=== PATIENT | male | born 1980 | race Caucasian/White ===

== ENCOUNTER 2020-03-09 17:54 | Observation (INO) | payer BC, MEDICAID, SELFPAY ==
[2020-03-09 17:55] VITALS: BP 162/100; PULSE 111; RESP 14; TEMP 36.8; O2SAT 96; BMI 30.6
--- NOTE | 2020-03-09 18:09 | EKG12_ITS ---
Test Reason : CP Blood Pressure : / mmHG Vent. Rate : 106 BPM Atrial Rate : 106 BPM P-R Int : 126 ms QRS Dur : 088 ms QT Int : 372 ms P-R-T Axes : 043 078 019 degrees QTc Int : 494 ms Sinus tachycardia Otherwise normal ECG Confirmed by APRIL GARZA ([id number]), content editor STEPHANIE PORTILLO ([id number]) on 03/11/2020 7:22:26 AM Referred By: TEO Confirmed By:APRIL GARZA
--- NOTE | 2020-03-09 18:17 | RAD_ITS ---
STUDY: X-RAY CHEST REASON FOR EXAM: Male, 39 years old. chest pain with vomiting TECHNIQUE: Single frontal view of the chest. COMPARISON: 04/19/2016 FINDINGS: The lungs are clear and expanded. There is no demonstrated pleural abnormality. Normal size heart. Normal mediastinum and blaire. Normal visualized pulmonary arteries. Normal visualized aortic arch and descending thoracic aorta. Normal visualized thoracic spine. Normal visualized ribs, clavicles, and shoulders. There is no demonstrated abnormality of the visualized soft tissue structures of the upper abdomen. RAD/Chest 1 View (Portable) IMPRESSION: Normal x-ray examination of the chest. Electronically Signed: Jose Garcia MD at 20:15 EDT Tel , Service support ,
--- NOTE | 2020-03-09 18:21 | ED.DCSUM_ITS ---
- ER Visit Summary Date of Service: 03/09/20 Chief Complaint: Chest pain History of Present Illness: The patient is a 39 M with a history of coronary disease, stent in the anterior descending artery, last cardiac catheterization 2013. History of pseudoseizures and conversion disorder. Presents with chest pain that started yesterday at work. The pain has been intermittent. He took some nitro yesterday and it felt better. He has nausea, vomiting, and feels shaky today. No history of venous thromboembolism. Physical Examination: Afebrile and vital signs unremarkable except for blood pressure 162/100 which she says is normal and heart rate is 111 which she says is normal. Alert and oriented. Appears depressed. Heart tachycardic but regular. Lungs clear. Calves soft and supple. Skin normal in color. Test Results: EKG showed sinus rhythm at a rate of 106. Laboratory studies and chest x-ray are pending. Emergency Department Course and Treatment: Patient treated with aspirin, Zofran, and IV fluids while awaiting results. He will likely need admission for cardiac evaluation. Chest x-ray was normal. CBC unremarkable. Potassium 3.2 which was replaced. Troponin normal. On reevaluation, patient is sleeping. He is with his family. He does have a history of conversion disorder and pseudoseizures. He is difficult to arouse sometimes per his family, but this is not a new issue and is probably related to his mental health history. Given his history of coronary disease, the hospitalist was contacted to admit for further care. Treatment Plan: As above Disposition: Admission Impression: Chest pain This note was generated with [employer] dictation software. It may contain incorrect words, spelling, and punctuation that were not noted in review of the chart prior to signing ED Disposition - Plan for ED Patient: Referrals: Martin Mcneill MD [Primary Care Provider] -
[2020-03-09] MEDS: 0.9% Normal Saline 1,000 ML 1000 ML IV (18:25)
[2020-03-09] MEDS: Ondansetron 4 MG/2 ML Vial IV (18:25)
[2020-03-09] MEDS: Aspirin 81 MG TAB.CHEW 324 MG PO (18:25)
[2020-03-09 18:38] LABS: Absolute Lymphocyte Count 3.55 X10^3/uL (0.83-4.51); Absolute Neutrophil Count 4.8 X10^3/uL (2.0-7.7); Basophil# 0.07 X10^3/uL; Basophil% 0.7 % (0-1); Eosinophil# 0.15 X10^3/uL; Eosinophils% 1.5 % (0-5); Hematocrit 50.2 % (40-54); Hemoglobin 17.6 g/dL (13.0-16.5); Lymphocyte # 3.55 X10^3/ul (4.0); Lymphocyte % 36.6 % (19-41); Mean Corp Hgb Conc 35.1 g/dL (32-36); Mean Corpuscular Hgb 32.2 pg (27.0-32.0); Mean Corpuscular Volume 91.9 fL (80-94); Mean Platelet Vol. 10.1 fl (6.2-12.0); Monocyte# 1.13 X10^3/uL; Monocyte% 11.6 % (0-10); NRBC Flagged by Analyzer 0 % (0-5); Neutrophil # 4.76 X10^3/uL (2.7-7.7); Neutrophil % 49.2 % (47-70); Platelet Count 270 K/mm3 (150-450); RBC Distribution Width CV 11.9 % (11.6-14.6); RBC Distribution Width SD 39.9 fl (35.1-43.9); Red Blood Count 5.46 M/mm3 (4.6-6.2); White Blood Count 9.7 K/mm3 (4.4-11.0)
[2020-03-09 18:42] LABS: Anion Gap 9 (5-15); BUN 14 mg/dL (7-18); BUN/Creat Ratio 13.2 RATIO (10-20); Chloride 104 mmol/L (98-107); Creatinine, Serum 1.06 mg/dL (0.70-1.30); EST Glomerular Filtration Rate 83 mL/min (>60); Est Glom Filt Rate - Afr Amer 101 mL/min (>60); Estimated Creatinine Clearance 114.04 ml/min; Glucose 116 mg/dL (74-106); Potassium 3.2 mmol/L (3.5-5.1); Sodium Level 137 mmol/L (136-145)
[2020-03-09 19:39] VITALS: BP 166/99; PULSE 103; RESP 18; O2SAT 96
--- NOTE | 2020-03-09 20:28 | PCM.HP.STD ---
Problem List (1) Chest pain Status: Acute (2) Hx of medication noncompliance Status: Chronic (3) Anxiety disorder Status: Chronic (4) Conversion disorder Status: Chronic (5) CAD (coronary artery disease) Status: Chronic Qualifiers: Coronary Disease-Associated Artery/Lesion type: [place] artery [place] vs. transplanted heart: [place] heart Associated angina: without angina Qualified Code(s): I25.10 - Atherosclerotic heart disease of [place] coronary artery without angina pectoris Comment: LAD stent 12/12 (6) Pseudoseizures Status: Chronic History of Present Illness Date of Admission: 03/09/20 Chief Complaint: chest pain The patient is a 39 year old M with a significant history of pseudoseizures; conversion disorder; anxiety disorder; CAD status post coronary stent in his LAD who presents at the emergency department with chest pain. He describes his chest pain as sharp. Chest pain is nonradiating and it was severe in intensity. His chest pain started on the same day of presentation. 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 The chest pain was excruciating. It was non-radiating. It improved with nitroglycerin and with rest. His chest pain had resolved before presenting to the emergency department. However while history was been taking his chest pain started to come back. Also he reports that four days before his presentation he had allergic reaction from eating eggs. He thinks that there is sulfa in the eggs and that caused his symptoms. He reported allergic symptoms as bloody diarrhea that has now resolved. Three days before presentation he had lightheadedness and difficulty standing up. Also he vomited. A day before presentation he vomited; had lightheadedness and felt dizzy. Patient has been unusually very sleepy. He report that typically when he is sick he gets sleepy. History was taken with his father present. And his father reported that patient has been sleepy. Patient reports excessive stress from a child custody duran. He reported that his previous [place] at the age of 33 for which a stent was placed was because of stress. Past Medical History Past Medical History (Chronic Problems): Chronic Problems (Last Updated 03/10/20 @ 00:[address] Victor Manuel Vitale MD) CAD (coronary artery disease) (Chronic) LAD stent 12/12 Pseudoseizures (Chronic) Conversion disorder (Chronic) Anxiety disorder (Chronic) Hx of medication noncompliance (Chronic) Medical History: Medical History (Last Updated 03/10/20 @ 00:[address] Victor Manuel Vitale MD) Tuberculosis (Inactive) A15.9 Patient had TB in his childhood. Allergies ibuprofen [From Motrin] Allergy (Verified 03/09/20 17:55) Unknown Sulfa (Sulfonamide Antibiotics) Allergy (Verified 03/09/20 17:55) Hives warfarin Adverse Reaction (Verified 03/09/20 18:27) PT UNSURE OF REACTION TAPE Adverse Reaction (Uncoded 03/09/20 17:55) Other Home Medications: Ambulatory Orders Medication Instructions Recorded Nitroglycerin 0.4 mg SL PRN 03/09/20 Surgical History: Surgical History (Last Updated 03/10/20 @ 00:[address] Victor Manuel Vitale MD) Stented coronary artery (Acute) Z95.5 Psychiatric History: Anxiety Smoking Status: Current every day smoker Tobacco Use: Cigarettes - *Family History Paternal History Items: Diabetes, Stroke Maternal History Items: Diabetes, Hypertension Review of Systems Constitutional: Denies: Chills, Fever, Weight Change HEENT: Denies: Head Aches, Sinus Congestion, Sinus Drainage Cardiovascular: Reports: Chest Pain. Denies: Palpitations Respiratory: Denies: Cough, Shortness of breath at rest, Sputum production Gastrointestinal: Reports: Nausea, Vomiting. Denies: Abdominal Pain Genitourinary: Denies: Dysuria Musculoskeletal: Denies: Joint Pain, Joint Tenderness Skin: Denies: Rash, Wounds Neurological: Reports: Balance problems, Tremor. Denies: Focal weakness, Numbness, Tingling Psychiatric: Denies: Anxiety, Depression, Homicidal Ideations, Suicidal Ideations Hematologic/ Lymphatic: Denies: Easy Bruising, Easy Bleeding VTE Information - Inpt Only VTE Present on Admission: No VTE Mechan Device Prophylaxis: SCD's VTE Pharm Prophylaxis ordered?: No Patient Problems: Active and Suspected Problems (Last Updated 03/10/20 @ 00:[address] Victor Manuel Vitale MD) Chest pain (Acute) - Physical Exam Vitals/I&O's: Vital Signs Temp Pulse Resp BP Pulse Ox 98.2 F 103 H 18 166/99 H 96 03/09/20 17:55 03/09/20 19:39 03/09/20 19:39 03/09/20 19:39 03/09/20 19:39 Oxygen Delivery Method Room Air Weight: 111 kg Body Mass Index (BMI) 30.6 Finger Stick Blood Glucose 116 Intake and Output for Last 24 Hours 03/07/20 03/08/20 03/09/20 23:59 23:59 23:59 Intake Total 1000 / 1000 Balance 1000 / 1000 General: Alert, Oriented x3, Cooperative HEENT: Atraumatic, PERRLA, EOMI, Normocephalic Neck: Supple, No JVD, Negative Carotid Bruits Lungs: Clear to auscultation, Normal air movement Cardiovascular: Regular rate, Normal S1, Normal S2, No murmurs Abdomen: Bowel Sounds Present, Soft, Non Tender Extremities: No edema, Capillary Refill Less than 3 Seconds Skin: No rashes, No breakdown Musculoskeletal: No Tenderness to Palpation of Joints or Extremities Neurological: Cranial nerves II-XII grossly intact Psych/Mental Status: Normal Affect, Appropriate Laboratory Results 03/09/20 18:00: WBC 9.7, RBC 5.46, Hgb 17.6 H, Hct 50.2, MCV 91.9, MCH 32.2 H, MCHC 35.1, RDW Std Deviation 39.9, RDW Coeff of [place] 11.9, Plt Count 270, MPV 10.1, Immature Gran % (Auto) 0.400, Neut % (Auto) 49.2, Lymph % (Auto) 36.6, [place] % (Auto) 11.6 H, Eos % (Auto) 1.5, Baso % (Auto) 0.7, Absolute Neuts (auto) 4.8, Absolute Lymphs (auto) 3.55, Nucleated RBC % 0 03/09/20 18:00: Sodium 137, Potassium 3.2 L, Chloride 104, Carbon Dioxide 24.0, Anion Gap 9, BUN 14, Creatinine 1.06, Estim Creat Clear Calc 114.04, Est GFR (MDRD) Af Amer 101, Est GFR (MDRD) Non-Af 83, BUN/Creatinine Ratio 13.2, Glucose 116 H, Calcium 9.0, Troponin I < 0.015 Assessment/Plan All Active Problems (Last Updated 03/10/20 @ 00:[address] Victor Manuel Vitale MD) Chest pain (Acute) Stented coronary artery (Acute) The patient is a 39 year old M with a significant history of pseudoseizures; conversion disorder; anxiety disorder; CAD status post coronary stent in his LAD who presents to the emergency department with chest pain. Chest Pain Place on a monitored bed at PCU Actual CXR image was independently visualized. No acute cardiopulmonary process was noted. Actual EKG tracing was independently visualized. EKG tracing showed sinus tachycardia. Patient received aspirin 324 mg at emergency department. ASA 81 mg p.o. daily ordered SL NTG 0.4 mg prn as needed for chest pain ordered We will check lipid panel. With his history of coronary stent if patient has no allergic to statin patient is a candidate of statin. Atorvastatin 40 mg nightly ordered. Will order CMP for now. Serial cardiac enzymes ordered Stat EKG as needed for chest pain Chemical stress test in the AM if the cardiac enzymes are negative. Patient is not a candidate for treadmill stress test since he reported dizziness and disequilibrium. He does not think that he can run on a treadmill. Dizziness and disequilibrium Will order vitamin B12. Orthostatic vitals ordered. Hypokalemia Potassium presentation was 3.2. 40 mEq of potassium was ordered at the emergency department. Will order urinary potassium. Will order potassium 40 mEq twice daily. CMP in a.m. Prolonged QTc interval EKG showed QTC prolongation with an interval of 471. Avoid QTC prolongation drugs. Tobacco abuse Counseled Declined nicotine patch. DVT prophylaxis ordered. SCD. No chemical thromboprophylaxis in the setting of cardiac work-up. OBSV E&M: [id number] Initial observation care L3
[2020-03-09 20:51] VITALS: BP 156/101; PULSE 96; RESP 18; TEMP 37.1; O2SAT 96
[2020-03-09 21:25] VITALS: BP 156/98; PULSE 87; PULSE 89; RESP 16; TEMP 36.7; O2SAT 98
--- NOTE | 2020-03-09 21:31 | EKG12_ITS ---
Test Reason : AM EKG Blood Pressure : / mmHG Vent. Rate : 080 BPM Atrial Rate : 080 BPM P-R Int : 136 ms QRS Dur : 094 ms QT Int : 400 ms P-R-T Axes : 045 077 051 degrees QTc Int : 461 ms Normal sinus rhythm Normal ECG When compared with ECG of 09-MAR-2020 22:51, MANUAL COMPARISON REQUIRED, DATA IS UNCONFIRMED Confirmed by LUTHER VALDEZ, FERNANDA ([id number]), mapping editor STEPHANIE PORTILLO ([id number]) on 03/16/2020 9:48:33 AM Referred By: TRISTEN Confirmed By:FERNANDA SLOAN MD
[2020-03-09 21:35] VITALS: BMI 29.6
[2020-03-09 21:38] VITALS: BMI 29.5
[2020-03-09] MEDS: Atorvastatin Calcium 40 MG Tablet PO (23:11)
[2020-03-09 23:32] LABS: Vitamin B12 366 pg/mL (211-911)
[2020-03-10] VITALS (7 sets, daily range): BP systolic 123–168; BP diastolic 79–104; PULSE 74–120; RESP 16–18; TEMP 36.8–36.9; O2SAT 95
[2020-03-10 03:01] LABS: Cholesterol 233 mg/dL (200); High Density Lipoprotein 28 mg/dL; Triglycerides 180 mg/dL; Very Low Density Lipoprotein 36 mg/dL (5-40)
[2020-03-10 03:10] LABS: ALB/GLOB Ratio 0.9 RATIO (0.9-2.4); AST(SGOT) 97 U/L (15-37); Alanine Aminotransfer ALT/SGPT 138 U/L (16-61); Albumin, Serum 3.5 g/dL (3.2-5.0); Alkaline Phosphatase 91 U/L (45-117); BUN 12 mg/dL (7-18); BUN/Creat Ratio 13.3 RATIO (10-20); Calcium,Total 8.3 mg/dL (8.5-10.1); Chloride 107 mmol/L (98-107); EST Glomerular Filtration Rate 100 mL/min (>60); Est Glom Filt Rate - Afr Amer 121 mL/min (>60); Estimated Creatinine Clearance 134.31 ml/min; Glucose 98 mg/dL (74-106); Potassium 3.7 mmol/L (3.5-5.1); Protein, Total 7.5 g/dL (6.4-8.2); Sodium Level 137 mmol/L (136-145)
[2020-03-10 03:11] LABS: Anion Gap 6 (5-15); Thyroid Stim Hormone (TSH) 1.62 uIU/mL (0.358-3.74)
--- NOTE | 2020-03-10 05:55 | EKG12_ITS ---
Test Reason : ADM EKG Blood Pressure : / mmHG Vent. Rate : 088 BPM Atrial Rate : 088 BPM P-R Int : 124 ms QRS Dur : 092 ms QT Int : 390 ms P-R-T Axes : 039 074 017 degrees QTc Int : 471 ms Normal sinus rhythm Nonspecific T wave abnormality Prolonged QT Abnormal ECG When compared with ECG of 27-JUN-2017 10:15, No significant change was found Confirmed by LUTHER VALDEZ, FERNANDA ([id number]), fashion editor STEPHANIE PORTILLO ([id number]) on 03/16/2020 9:49:17 AM Referred By: TRISTEN Confirmed By:FERNANDA SLOAN MD
[2020-03-10] MEDS: Aspirin E.C. 81 MG Tablet PO (06:06)
[2020-03-10] MEDS: 0.9% Saline Lock 10 ML Syringe IV ×2 (06:06→12:08)
[2020-03-10] MEDS: proCHLORPERazine 10 MG/2 ML Vial 5 MG IV (12:08)
--- NOTE | 2020-03-10 13:14 | STRESSREP ---
Stress Test Report Pharmacologic myocardial perfusion stress test. 39-year-old man with a history of coronary artery disease and stenting in his left anterior descending artery. Stress protocol: Resting EKG demonstrates normal sinus rhythm with a rate of 87 bpm normal intervals are noted resting blood pressure is 122/96 mmHg. 0.4 mg of regadenoson was infused per usual protocol followed by Intravenous saline flush injection continuous EKG monitoring was performed. The maximum heart rate was 137 bpm which was 74% of maximum predicted heart rate the maximum workload was 1 metabolic equivalent. At rest there were nonspecific ST-T wave changes noted with no meet the criteria for abnormal flow reserve and at peak infusion nonspecific ST-T wave changes were noted. The resting blood pressure was 122/96 with a final blood pressure of 138/86 mmHg. Myocardial perfusion protocol. 13.2 mCi of technetium 99m sestamibi was injected at rest. 0.4 mg of regadenoson was infused per usual protocol. At peak infusion 42.3 mCi of technetium 99m sestamibi was injected stress images were obtained stress and rest images were reconstructed and compared in the short axis vertical long and horizontal long axis. Gated images were also obtained. Perfusion SPECT analysis: Review of the stress images demonstrate normal uptake of tracer noted in all areas of the myocardium. There is a small portion of the apex with a perfusion defect on the stress and resting images suggestive of a previous apical infarct. No ischemia is noted. Gated SPECT analysis: The gated ejection fraction is over 55%. Conclusion: Pharmacologic myocardial perfusion stress test with no evidence of ischemia. Preserved ejection fraction. 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
--- NOTE | 2020-03-10 13:24 | PCM.DC ---
- Discharge Diagnoses Current Active Problems: Current Active and Chronic Problems (Last Updated 03/10/20 @ 00:[address] Victor Manuel Vitale MD) Chest pain (Acute) You will use the following diet at home:: Cardiac Discharge Activity: Return to Normal Activity Call your doctor if you observe: Shortness of breath, Dizziness, Fainting spells, Chest pain Allergies/Adverse Reactions: Allergies ibuprofen [From Motrin] Allergy (Verified 03/09/20 17:55) Unknown Sulfa (Sulfonamide Antibiotics) Allergy (Verified 03/09/20 17:55) Hives warfarin Adverse Reaction (Verified 03/09/20 21:41) PT UNSURE OF REACTION hallucinations TAPE Adverse Reaction (Uncoded 03/09/20 17:55) Other Medications to take at Discharge Nitroglycerin 0.4 mg SL PRN 03/09/20 Aspirin E.C. [Ecotrin] 81 mg PO DAILY@0800 #30 tab 03/10/20 Atorvastatin Calcium [Lipitor] 40 mg PO QHS #30 tab 03/10/20 The following prescriptions were given: Aspirin E.C. [Ecotrin] 81 mg PO DAILY@0800 #30 tab Transmission Status: Pending to [facility] Atorvastatin Calcium [Lipitor] 40 mg PO QHS #30 tab Transmission Status: Pending to [facility] Primary Care Physician: Martin Mcneill MD [Primary Care Provider] - Please follow up with your Primary Care Physician in: 1 Week Test Results: Test results from this visit will be discussed in further detail at your follow-up appointment, if applicable. Please Follow Up With: [facility] When: 1 Week Proposed Discharge Date: 03/10/20
--- NOTE | 2020-03-10 13:25 | PCM.DC.SUM ---
<Maris Loera - Last Filed: 03/10/20 13:35> Discharge Date and Diagnosis Date of Admission: 03/09/20 Date of Discharge: 03/10/20 - Primary Discharge Diagnosis Acute Problems: Active Problems (Last Updated 03/10/20 @ 00:[address] Victor Manuel Vitale MD) 1. Chest pain, ACS ruled out 2. CAD with history of PCI 3. Hyperlipidemia 4. History of pseudoseizures/conversion disorder/anxiety disorder 5. Transaminitis - Secondary Discharge Diagnosis Chronic Problems: Chronic Problems (Last Updated 03/10/20 @ 00:[address] Victor Manuel Vitale MD) CAD (coronary artery disease) (Chronic) LAD stent 12/12 Pseudoseizures (Chronic) Conversion disorder (Chronic) Anxiety disorder (Chronic) Hx of medication noncompliance (Chronic) Hospital Course and Treatment Imaging Results: Diagnostic Data Chest X-Ray 03/09/20 18:17 IMPRESSION: Normal x-ray examination of the chest. Electronically Signed: Jose Garcia MD at 20:15 EDT Tel , Service support , Operations: None Procedures: Stress test Summary of Care Provided: The patient is a 39 year old M admitted 03/09/2020 due to chest pain. 1. Chest pain, ACS ruled out-troponin negative. EKG without ST-T changes. Normal chest x-ray. Patient underwent nuclear stress test which was negative for ischemia. Gated ejection fraction 55%. Previous small apical infarct. Continue aspirin, statin. Follow-up with primary care and primary cardiology in 1 week. 2. CAD with history of PCI-placed on aspirin, statin. Not previously on regimen. 3. Hyperlipidemia-lipid profile elevated. Placed on atorvastatin 40 mg nightly. Recommend repeat lipid profile by PCP. 4. History of pseudoseizures/conversion disorder/anxiety disorder-not on regimen. Encouraged outpatient follow-up. 5. Transaminitis-unclear etiology. No previous labs for comparison. Recommend repeat liver profile in 1 week by primary care provider. Patient seen and examined prior to discharge. Physical assessment as noted below. Patient is stable for discharge with follow up recommendations as noted above. This patient was seen by KRYSTAL Henry under the supervision of Dr. Bazzi. - Physical Exam Vitals/I&O's: Vital Signs Temp Pulse Resp BP Pulse Ox 98.4 F 74 16 123/87 H 95 03/10/20 09:45 03/10/20 09:45 03/10/20 09:45 03/10/20 09:45 03/10/20 09:45 Oxygen Delivery Method Room Air Weight: 236 lb 12.423 oz Body Mass Index (BMI) 29.5 Finger Stick Blood Glucose 116 Orthostatic Vital Signs Start: 03/10/20 00:47 Freq: q24h Status: Active Protocol: Activity Type Activity Date Activity User E-Sign Co-Sign Detail Recorded Client Recorded Date Recorded By Document 03/10/20 03:25 MAB [id number] 03/10/20 04:19 MAB 03/10/20 03:25 Orthostatic Vitals Standing -Blood Pressure (90/60-120/80) 157/91 H -Extremity Use Right Arm -Pulse Rate (60-100) 100 Sitting -Blood Pressure (90/60-120/80) 143/94 H -Extremity Use Right Arm -Pulse Rate (60-100) 90 Lying -Blood Pressure (90/60-120/80) 138/90 H -Extremity Use Right Arm -Pulse Rate (60-100) 88 Intake and Output for Last 24 Hours 03/08/20 03/09/20 03/10/20 23:59 23:59 23:59 Intake Total 1240 / 1240 240 / 240 Balance 1240 / 1240 240 / 240 General: Alert, Oriented x3, Cooperative HEENT: Atraumatic, PERRLA, EOMI, Normocephalic Neck: Supple, No JVD, Negative Carotid Bruits Lungs: Clear to auscultation, Normal air movement Cardiovascular: Regular rate, No murmurs Abdomen: Bowel Sounds Present, Soft, Non Tender Extremities: No edema, Capillary Refill Less than 3 Seconds Skin: No rashes, No breakdown Musculoskeletal: No Tenderness to Palpation of Joints or Extremities Neurological: Cranial nerves II-XII grossly intact, Neuro grossly intact Psych/Mental Status: Normal Affect, Appropriate Laboratory Results 03/09/20 18:00: WBC 9.7, RBC 5.46, Hgb 17.6 H, Hct 50.2, MCV 91.9, MCH 32.2 H, MCHC 35.1, RDW Std Deviation 39.9, RDW Coeff of Lizett 11.9, Plt Count 270, MPV 10.1, Immature Gran % (Auto) 0.400, Neut % (Auto) 49.2, Lymph % (Auto) 36.6, Clare % (Auto) 11.6 H, Eos % (Auto) 1.5, Baso % (Auto) 0.7, Absolute Neuts (auto) 4.8, Absolute Lymphs (auto) 3.55, Nucleated RBC % 0 03/09/20 18:00: Sodium 137, Potassium 3.2 L, Chloride 104, Carbon Dioxide 24.0, Anion Gap 9, BUN 14, Creatinine 1.06, Estim Creat Clear Calc 114.04, Est GFR (MDRD) Af Amer 101, Est GFR (MDRD) Non-Af 83, BUN/Creatinine Ratio 13.2, Glucose 116 H, Calcium 9.0, Troponin I < 0.015 03/09/20 22:05: Troponin I < 0.015 03/09/20 22:05: Vitamin B12 366 03/10/20 02:35: Sodium 137, Potassium 3.7, Chloride 107, Carbon Dioxide 24.0, Anion Gap 6, BUN 12, Creatinine 0.90, Estim Creat Clear Calc 134.31, Est GFR (MDRD) Af Amer 121, Est GFR (MDRD) Non-Af 100, BUN/Creatinine Ratio 13.3, Glucose 98, Calcium 8.3 L, Total Bilirubin 1.20 H, AST 97 H, ALT 138 H, Alkaline Phosphatase 91, Total Protein 7.5, Albumin 3.5, Globulin 4.0, Albumin/Globulin Ratio 0.9, TSH 1.62 03/10/20 02:35: Troponin I < 0.015, Triglycerides 180, Cholesterol 233 H, LDL Cholesterol 169 H, VLDL Cholesterol 36, HDL Cholesterol 28 L Current Medications Acetaminophen (Tylenol) 650 mg PO Q6H PRN PRN PRN Reason: Pain Score 1-10/Temp > 100.7 F Aspirin (Ecotrin) 81 mg PO DAILY@0800 [facility] Last Admin: 03/10/20 06:06 Dose: 81 mg Documented by: Atorvastatin Calcium (Lipitor) 40 mg PO QHS [facility] Last Admin: 03/09/20 23:11 Dose: 40 mg Documented by: Dextrose (D50w Syringe) 0 gm IV X1 PRN; Protocol PRN Reason: Hypoglycemia Glucagon () 1 mg IM .X1 PRN PRN Reason: Hypoglycemia Sodium Chloride () 250 mls @ 15 mls/hr IV .[id number] PRN PRN Reason: Saline Flush Sodium Chloride () 250 mls @ 15 mls/hr IV .[id number] PRN PRN Reason: Additional IVPB Infusion Nitroglycerin (Nitrostat) 0.4 mg SUBLINGUAL Q5M PRN PRN Reason: CARDIAC/CHEST PAIN Nutritional Formula (Lactose Free) (Ensure Enlive) 120 ml PO 4X/DAY [facility] Last Admin: 03/10/20 13:23 Dose: Not Given Documented by: Potassium Chloride (K-Dur) 40 meq PO BIDCM [facility] Last Admin: 03/10/20 12:09 Dose: 40 meq Documented by: Prochlorperazine Edisylate (Compazine Iv) 5 mg IV Q6H PRN PRN PRN Reason: NAUSEA/VOMITING Last Admin: 03/10/20 12:08 Dose: 5 mg Documented by: Sodium Chloride () 10 - 40 ml IV UD PRN PRN Reason: SALINE FLUSH Last Admin: 03/10/20 12:08 Dose: 10 ml Documented by: Discharge Diet: Low fat/ Low Cholesterol Discharge Activity: Return to Normal Activity Call your doctor if you observe: Shortness of breath, Dizziness, Fainting spells, Chest pain Home Medications: Medications to take at Discharge Nitroglycerin 0.4 mg SL PRN 03/09/20 Aspirin E.C. [Ecotrin] 81 mg PO DAILY@0800 #30 tab 03/10/20 Atorvastatin Calcium [Lipitor] 40 mg PO QHS #30 tab 03/10/20 Following Prescrptions Were Given to Patient: Aspirin E.C. [Ecotrin] 81 mg PO DAILY@0800 #30 tab Transmission Status: Received by [facility] Atorvastatin Calcium [Lipitor] 40 mg PO QHS #30 tab Transmission Status: Received by [facility] Primary Care Physician: Martin Mcneill MD [Primary Care Provider] - Please follow up with your Primary Care Physician in: 1 Week Please Follow Up With: Primary Mortgage Loan Officer When: 1 Week Disposition: Home Minutes spent on discharge:: 35 Patient Condition:: Stable Medical Necessity - Tobacco Use Smoking Status: Current every day smoker Tobacco Use: Cigarettes Meaningful Use Info Meaningful Use Diagnoses (Choose all that apply): None applicable <[place] - Last Filed: 03/12/20 08:06> Discharge Date and Diagnosis - Secondary Discharge Diagnosis Chronic Problems: Chronic Problems (Last Updated 03/10/20 @ 00:[address] Victor Manuel Vitale MD) CAD (coronary artery disease) (Chronic) LAD stent 12/12 Pseudoseizures (Chronic) Conversion disorder (Chronic) Anxiety disorder (Chronic) Hx of medication noncompliance (Chronic) Hospital Course and Treatment Summary of Care Provided: This patient was seen in conjunction with Maris Loera NP. I have independently interviewed and examined the patient and reviewed pertinent historical, laboratory, and other data. Please refer to her note for patient's presentation, findings, and recommendations. 39-year-old male with past medical history of pseudoseizures/conversion disorder, anxiety disorder, CAD status post stent who comes in with sharp chest pain that is nonradiating. Chest pain is excruciating, nonradiating, improved with nitroglycerin. EKG showed normal sinus rhythm, tachycardia. His troponins were negative. He underwent exercise stress test which was negative. On the day of discharge, patient was seen and examined. Denied any new complaint. Physical Exam: Gen: Comfortable, flat affect, not pale, not jaundiced, alert oriented x3 CVS:HS I +II, regular, no murmurs RESP: Diminished at lung bases GI: BS present and normal, nontender, no palpable organs EXT:No edema - Physical Exam Vitals/I&O's: Vital Signs Temp Pulse Resp BP Pulse Ox 98.4 F 74 16 123/87 H 95 03/10/20 09:45 03/10/20 09:45 03/10/20 09:45 03/10/20 09:45 03/10/20 09:45 Oxygen Delivery Method Room Air Weight: 107.4 kg Body Mass Index (BMI) 29.5 Finger Stick Blood Glucose 116 Orthostatic Vital Signs Start: 03/10/20 00:47 Freq: q24h Status: Active Protocol: Activity Type Activity Date Activity User E-Sign Co-Sign Detail Recorded Client Recorded Date Recorded By Document 03/10/20 03:25 MAB [id number] 03/10/20 04:19 MAB 03/10/20 03:25 Orthostatic Vitals Standing -Blood Pressure (90/60-120/80) 157/91 H -Extremity Use Right Arm -Pulse Rate (60-100) 100 Sitting -Blood Pressure (90/60-120/80) 143/94 H -Extremity Use Right Arm -Pulse Rate (60-100) 90 Lying -Blood Pressure (90/60-120/80) 138/90 H -Extremity Use Right Arm -Pulse Rate (60-100) 88 Intake and Output for Last 24 Hours 03/10/20 03/11/20 03/12/20 23:59 23:59 23:59 Intake Total 240 / 240 Balance 240 / 240 OBSV E&M: [id number] Observation care discharge
--- OUTSIDE RECORDS SUMMARY | 2020-07-18 10:38 | XMS RPT_ITS | CCD ---
:1980 External Reference #:[id number] Author Organization [facility] Care Team Providers Name Role Phone Unavailable Unavailable Unavailable Results Result Name Value Range Unit Interpretation Flag Date Location cnpn on 2020-04-01 CNPN Telephone (FAMPWS) Normal 04-01-2020 [facility] LAVON LAI ([id number]) 1980 [facility] Date Time Provider Department ([id number]) 04/01/20 GEORGE HIRSCH During your visit today, we recorded the following informati on about you: Selene Proctor LPN 04/01/2020 8:36 AM Signed Patient dropped off FMLA forms to desk representative today and wante d to make sure office receives form. Angelica Rangel Ma 04/01/2020 11:27 AM Signed Office checked provider's ma ilbox. No forms have been placed there or in office. Angelica Navarro 04/01/2020 12:15 PM Signed Patient's mom calls says radha pinto would like included in FMLA that he is allowed 8 hour shifts but unable to work 12 hours shifts due t o his heart condition. Angelica Rangel Ma 04/01/2020 1:28 PM Signed Forms on PCP's desk to complete. Asking that these be done t jean. Angelica Hirsch MD 04/01/2020 5:45 PM Signed From done MD Angelica Stanford Ma 04/05/2020 8:59 AM Signed Faxed. Copy at med rec for pt to nut picker. Angelica Rangel Ma Allergies As of Date: 04/01/2020 Noted Allergy Reaction IBUPROFEN 02/26/2014 8 - GI Upset LIPITOR (ATORVASTATIN) 03/24/2020 17 - Myalgia NAPROXEN 02/26/2014 8 - GI Upset SULFA (SULFONAMIDE ANTIBIOTICS) 07/02/2007 Date Reviewed: 03/24/2020 Reviewed by: Angelica Rangel Ma - Fully Assessed Reason for Visit: FMLA Paperwork [[id number]] Prescriptions as of 04/01/2020 Sig: ROSUVASTATIN 5 MG TABLET Take 1 tablet by mouth once d* NITROGLYCERIN 0.4 MG SUBLINGU* Dissolve 1 tablet under the t * Problem List As Of Date 04/01/2020 Noted Resolved TOBACCO USE DISORDER [F17.200] TB vs + PPD only [A15.0] 09/03/2007 More... AMI (acute myocardial infarction) [I21.9] 12/19/2013 Fracture of radial head, left, closed [S52.122A]02/12/2014 CAD (coronary artery disease) [I25.10] 04/14/2014 History of PR (myocardial infarction) (HCC) [I2*05/19/2014 Conversion disorder with attacks or seizures [F*06/11/2014 Psychic factors associated with diseases classi*08/11/2014 Adjustment disorder with mixed anxiety and depr*08/11/2014 Anxiety [F41.9] 10/19/[address] elevation myocardial infarction (STEMI*11/02/2015 S/P angioplasty with stent [Z95.820] 11/02/2015 Encounter Status:Closed by ANGELICA RANGEL MA on 04/05/20 progress on 2020-03 PROGRESS HNO ID: [id number] Normal 03-24-2020 [facility] Author: George Hirsch [place] ([id number]) Service: ? Author Type: Physician Type: Progress Notes Filed: 03/24/2020 10:00 AM Note Text: This Team Access Model visit is a phone encounter. It requir ed patient-provider interaction for the medical decision making as documented below. Chief Complaint Patient presents with: Hospital Follow Up HPI: This Team Access Model visit is a virtual/phone encount er. It required patient-provider interaction for the medical decisi on making as documented below. Patient was offered a virtual/telemedicine appointment in lieu of an office visit due to recommendations to reduce patient exposure to COVID-19. Patient is aware of limitations of per forming the visit without a face to face visit in the office setting and agrees. Pt was in [facility] ER on 03/10/2020 for chest pains, all over weak ness, nausea, vomiting, diarrhea, dizziness, and SOB. [facility], and was discharged following day. He was discharged o n Lipitor 40 mg daily however pt did not tolerate it well, had a lot of s neeta effects from the medications. He states he will not take it any more . He states that he is still having dizziness and weakness, occ chest pa ins, SOB, still vomiting, nausea on a daily basis. No longer has any d iarrhea. He states he is not sure if the symptoms are now caused from th e Lipitor. He states that these symptoms have been on going but worsened w ith the Lipitor. He states he now has a rash to both legs and burnin g of skin and has been having sleep paralysis which started with use of Li pitor. Stress in life has decreased some right now. Work remains stressful; being made to work extra hours which he is not sure he is able to do, due to both physical and mental issue s. Past medical history, appointments, medications, allergies r eviewed. Previous Medical History PAST MEDICAL HISTORY Diagnosis Date - AMI (acute myocardial infarction) (HCC) 11/2013 - Anxiety 10/19/2014 - Chiari I malformation ([facility]) mild right, ventricle asymmetry - Conversion disorder with attacks or seizures 2013 negative EEG 03/2014 - TB vs + PPD only Says was treated for TB at age 20, + PPD, unclear if had act maikel disease - Tobacco use disorder age 19 Previous Surgical History PAST SURGICAL HISTORY Procedure Laterality Date - HEART CATHETERIZATION 12/03/2013 LAD stent - LEFT HEART CATH,PERCUTANEOUS 12/26/2013 Cardiac cath, L heart Family History FAMILY HISTORY Problem Relation Age of Onset - Diabetes Mother - None Father - Colon Cancer Other none - Coronary Artery Disease Other none Patient Allergies ALLERGIES Allergen Reactions - Ibuprofen GI Upset - Naproxen GI Upset - Sulfa (Sulfonamide * Current Medications Current Outpatient Medications on File Prior to Visit Medication Sig - ondansetron orally disintegrating (ZOFRAN ODT) 4 mg disint egrating tablet Take 1 tablet by mouth every 6 hours as needed for Na usea/Vomiting. - nitroglycerin sublingual (NITROSTAT) 0.4 mg SL tablet Diss olve 1 tablet under the tongue every 5 minutes as needed for Chest Pain. - propranolol ER (INDERAL LA) 60 mg 24 hr capsule Take 1 cap nicci by mouth once daily. Take several days prior to court date to control anxiety No current facility-administered medications on file prior t o visit. Social History Social History Tobacco Use - Smoking status: Current Every Day Smoker Packs/day: 1.00 Years: 8.00 Pack years: 8.00 Types: Cigarettes Start date: 07/01/2014 - Smokeless tobacco: Never Used Substance Use Topics - Alcohol use: No - Drug use: No Comment: History IV drug use, marijuana EXAM: There were no vitals taken for this visit. Phone visit; no exam done Health Maintenance List HIV SCREENING due on 2000 DTAP,TDAP,TD(1 - Tdap) due on 2001 ONE PNEUMOVAX PRIOR TO AGE 67 due on 2001 LDL CHOLESTEROL due on 10/26/2015 ANNUAL PCP TEAM CHRONIC DISEASE VISIT due on 09/04/2019 LIPID SCREEN due on 10/26/2019 INFLUENZA(Season Ended) due on 06/01/2020 HEPATITIS C SCREENING Completed Data reviewed Hosp records ASSESSMENT/PLAN: 1. Coronary artery disease without angina pectoris, unspecif ied vessel or lesion type, unspecified whether [place] or transplanted hear t - ICD9: 414.00, ICD10: I25.10 (primary diagnosis) Will try Crestor for lipids; plan to recheck lipids in 3 mon ths 2. Adjustment disorder with mixed anxiety and depressed mood - ICD9: 309.28, ICD10: F43.23 Stress level has decreased currently; discussed and recommen ded counseling 3. Conversion disorder with attacks or seizures - ICD9: 300. 11, ICD10: F44.5 He will see how he does with work; if it is too much for him he will call for a note to have limited hours Follow up prn 5-10 minutes of time spent on phone call I agree with the Chief Complaint, ROS, and Past Histories in dependently gathered by the clinical postal support employee and the remaining scr ibed note accurately describes my personal service to the patient. George Hirsch MD The documentation for this note was completed by Angelica cintron Ma acting as scribe for George Hirsch MD. March 24, 2020 7:59 AM. Angelica Rangel Ma Summary Purpose Family History No Family History Records Found Advance Directives No Advanced Directives Records Found Additional Source Comments FOR RECORDS PERTAINING TO PATIENTS WHO ARE OR HAVE BEEN ENROLLED IN A CHEMICAL DEPENDENCY/SUBSTANCE ABUSE PROGRAM, SOME INFORMATION MAY BE OMITTED. This clinical summary was aggregated from multiple sources. Caution should be exercised in using it in the provision of clinical care. This summary normalizes information from multiple sources, and as a consequence, information in this document may materially changethe coding, format and clinical context of patient data. In addition, data may be omittedin some cases. CLINICAL DECISIONS SHOULD BE BASED ON THE PRIMARY CLINICAL RECORDS. [facility] provides no warranty or guarantee of the accuracy or completeness of information in this document. UNRECOGNIZED CONTENT PROVIDED BELOW FOR UNRECOGNIZED SECTION No Status Records Found UNRECOGNIZED CONTENT PROVIDED BELOW FOR UNRECOGNIZED SECTION INFORMATION SOURCE DATE CREATED AUTHOR AUTHOR'S ORGANIZATIO N 04/20/2020 [facility] eliazar
--- OUTSIDE RECORDS SUMMARY | 2020-07-18 10:39 | XMS RPT_ITS | CCD ---
:1980 External Reference #:[id number] Author Organization [facility] Care Team Providers Name Role Phone Unavailable Unavailable Unavailable Results Result Name Value Range Unit Interpretation Flag Date Location cnpn on 2020-04-01 CNPN Telephone (FAMPWS) Normal 04-01-2020 [facility] LAVON LAI ([id number]) 1980 [facility] Date Time Provider Department ([id number]) 04/01/20 GEORGE HIRSCH During your visit today, we recorded the following informati on about you: Selene Proctor LPN 04/01/2020 8:36 AM Signed Patient dropped off FMLA forms to bowling or skating front desk clerk today and wante d to make sure [...] Copy at med rec for pt to sisal picker. Angelica Rangel Ma Allergies As of [...] (coronary artery disease) [I25.10] 04/14/[address] (myocardial infarction) (HCC) [I2*05/19/2014 Conversion disorder with attacks or seizures [F*06/11/2014 Psychic factors associated with diseases classi*08/11/2014 Adjustment disorder with mixed anxiety and depr*08/11/2014 Anxiety [F41.9] 10/19/[address] elevation myocardial infarction (STEMI*11/02/2015 S/P angioplasty with stent [Z95.820] 11/02/2015 Encounter Status:Closed by ANGELICA RANGEL MA on 04/05/20 progress on 2020-03 PROGRESS HNO ID: [id number] Normal 03-24-2020 [facility] Author: George Hirsch [place] ([id number]) Service: ? Author Type: Physician Type: Progress [...] office setting and agrees. Pt was in [facility] ER on 03/10/2020 for chest pains, all over weak ness, nausea, vomiting, diarrhea, dizziness, and SOB. 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 [facility] provides no warranty or guarantee of the accuracy or completeness of information in this document. UNRECOGNIZED CONTENT PROVIDED BELOW FOR UNRECOGNIZED SECTION No Status Records Found UNRECOGNIZED CONTENT PROVIDED BELOW FOR UNRECOGNIZED SECTION INFORMATION SOURCE DATE CREATED AUTHOR AUTHOR'S ORGANIZATIO N 04/20/2020 [facility] eliazar
--- OUTSIDE RECORDS SUMMARY | 2020-07-18 10:40 | XMS RPT_ITS | CCD ---
:1980 External Reference #:[id number] Author Organization [facility] Care Team Providers Name Role Phone Unavailable Unavailable Unavailable Results Result Name Value Range Unit Interpretation Flag Date Location cnpn on 2020-04-01 CNPN Telephone (FAMPWS) Normal 04-01-2020 [facility] LAVON LAI ([id number]) 1980 [facility] Date Time Provider Department ([id number]) 04/01/20 GEORGE HIRSCH During your visit today, we recorded the following informati on about you: Selene Proctor LPN 04/01/2020 8:36 AM Signed Patient dropped off FMLA forms to front end mechanic today and wante d to make sure [...] Copy at med rec for pt to cook pickled meat. Angelica Rangel Ma Allergies As of Date: [...] (coronary artery disease) [I25.10] 04/14/2014 History of SC (myocardial infarction) (HCC) [I2*05/19/2014 Conversion disorder with attacks or seizures [F*06/11/2014 Psychic factors associated with diseases classi*08/11/2014 Adjustment disorder with mixed anxiety and depr*08/11/2014 Anxiety [F41.9] 10/19/[address] elevation myocardial infarction (STEMI*11/02/2015 S/P angioplasty with stent [Z95.820] 11/02/2015 Encounter Status:Closed by ANGELICA RANGEL MA on 04/05/20 progress on 2020-03 PROGRESS HNO ID: [id number] Normal 03-24-2020 [facility] Author: George Hirsch [place] ([id number]) Service: ? Author Type: Physician Type: Progress [...] office setting and agrees. Pt was in [facility] ER on 03/10/2020 for chest pains, all over weak ness, nausea, vomiting, diarrhea, dizziness, and SOB. [facility] and was discharged following [...] - Anxiety 10/19/2014 - Chiari I malformation ([facility]) mild right, ventricle asymmetry - Conversion disorder [...] ied vessel or lesion type, unspecified whether [place] or transplanted hear t - ICD9: 414.00, [...] Histories in dependently gathered by the clinical systems support specialist and the remaining scr ibed note accurately [...] BE BASED ON THE PRIMARY CLINICAL RECORDS. [facility] provides no warranty or guarantee of the accuracy or completeness of information in this document. UNRECOGNIZED CONTENT PROVIDED BELOW FOR UNRECOGNIZED SECTION No Status Records Found UNRECOGNIZED CONTENT PROVIDED BELOW FOR UNRECOGNIZED SECTION INFORMATION SOURCE DATE CREATED AUTHOR AUTHOR'S ORGANIZATIO N 04/20/2020 [facility] eliazar
--- OUTSIDE RECORDS SUMMARY | 2020-07-18 10:41 | XMS RPT_ITS | CCD ---
:1980 External Reference #:[id number] Author Organization [facility] Care Team Providers Name Role Phone Unavailable Unavailable Unavailable Results Result Name Value Range Unit Interpretation Flag Date Location cnpn on 2020-04-01 CNPN Telephone (FAMPWS) Normal 04-01-2020 [facility]AV[place] LAI ([id number]) 1980 [facility] Date Time Provider Department ([id number]) 04/01/20 GEORGE HIRSCH During your visit today, we recorded the following informati on about you: Selene Proctor LPN 04/01/2020 8:36 AM Signed Patient dropped off FMLA forms to front office supervisor today and wante d to make sure [...] Copy at 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 Angelica Rangel Ma Allergies As of Date: [...] (coronary artery disease) [I25.10] 04/14/2014 History of VT (myocardial infarction) (HCC) [I2*05/19/2014 Conversion disorder with attacks or seizures [F*06/11/2014 Psychic factors associated with diseases classi*08/11/2014 Adjustment disorder with mixed anxiety and depr*08/11/2014 Anxiety [F41.9] 10/19/[address] elevation myocardial infarction (STEMI*11/02/2015 S/P angioplasty with stent [Z95.820] 11/02/2015 Encounter Status:Closed by ANGELICA RANGEL MA on 04/05/20 progress on 2020-03 PROGRESS HNO ID: [id number] Normal 03-24-2020 [facility] Author: George Hirsch [facility] ([id number]) Service: ? Author Type: Physician Type: Progress [...] office setting and agrees. Pt was in [facility] ER on 03/10/2020 for chest pains, all over weak ness, nausea, vomiting, diarrhea, dizziness, and SOB. [facility], and was discharged [...] - Anxiety 10/19/2014 - Chiari I malformation ([facility]) mild right, ventricle asymmetry - Conversion [...] ied vessel or lesion type, unspecified whether [place] or transplanted hear t - ICD9: 414.00, [...] Histories in dependently gathered by the clinical field support technician and the remaining scr ibed note accurately [...] BE BASED ON THE PRIMARY CLINICAL RECORDS. [facility] [place] provides no warranty or guarantee of the accuracy or completeness of information in this document. UNRECOGNIZED CONTENT PROVIDED BELOW FOR UNRECOGNIZED SECTION No Status Records Found UNRECOGNIZED CONTENT PROVIDED BELOW FOR UNRECOGNIZED SECTION INFORMATION SOURCE DATE CREATED AUTHOR AUTHOR'S ORGANIZATIO N 04/20/2020 [facility] eliazar
== END 2020-03-10 13:24 | disposition home or self-care (01) ==
LOC: ED 19:19 → PCU 21:08
PROVIDERS: Admitting Provider Hospitalist; Emergency Provider Emergency Medicine; PCP Family Medicine; Visit Provider Internal Medicine
DX: R07.89 Other chest pain (principal); I25.10 Atherosclerotic heart disease of native coronary artery without angina pectoris; E78.5 Hyperlipidemia, unspecified; R74.0 Nonspecific elevation of levels of transaminase and lactic acid dehydrogenase [LDH]; F17.210 Nicotine dependence, cigarettes, uncomplicated; E87.6 Hypokalemia; R42 Dizziness and giddiness; R00.0 Tachycardia, unspecified; Z95.5 Presence of coronary angioplasty implant and graft
CPT/HCPCS: 36415; 71045; 78452; 80048; 80053; 80061; 82607; 84443; 84484; 85025; 93005; 93017; 96374; 96375; 99218; 99284; A9500; J7030; A4216; G0378; J2405; J2785

== ENCOUNTER 2023-11-12 20:01 | Emergency (ER) | payer BC, SELFPAY ==
[2023-11-12 20:02] VITALS: BP 160/114; PULSE 110; RESP 17; TEMP 36.4; O2SAT 94; BMI 25.4
[2023-11-12 20:20] VITALS: BP 160/107; PULSE 106; RESP 17; O2SAT 96
--- NOTE | 2023-11-12 20:25 | EKG12_ITS ---
Test Reason : CP Blood Pressure : / mmHG Vent. Rate : 103 BPM Atrial Rate : 103 BPM P-R Int : 128 ms QRS Dur : 086 ms QT Int : 354 ms P-R-T Axes : 053 079 059 degrees QTc Int : 463 ms Sinus tachycardia Otherwise normal ECG Confirmed by Tomy Garcia ([id number]), editorial director STEPHANIE PORTILLO ([id number]) on 11/13/2023 9:29:38 AM Referred By: STEFFANIE Confirmed By:Tomy Garcia
--- NOTE | 2023-11-12 20:30 | RAD_ITS ---
INDICATION: chest pain EXAMINATION/TECHNIQUE: X-RAY - XR Chest 1 View COMPARISON: FINDINGS: LINES/DEVICES: None. LUNGS: No consolidation, edema or effusion. No pneumothorax. MEDIASTINUM AND CARDIOVASCULAR STRUCTURES: Cardiac silhouette not enlarged. Central airways and mediastinal contour are unremarkable. BONES AND SOFT TISSUES: Unremarkable. RAD/Chest 1 View (Portable) IMPRESSION: No radiographic evidence of acute cardiopulmonary disease. Electronically Signed: Austin Bridges DO at 20:51 EST ,
[2023-11-12 20:34] LABS: Absolute Lymphocyte Count 3.26 X10^3/uL (0.83-4.51); Absolute Neutrophil Count 5.5 X10^3/uL (2.0-7.7); Basophil# 0.07 X10^3/uL; Basophil% 0.7 % (0-1); Eosinophil# 0.03 X10^3/uL; Eosinophils% 0.3 % (0-5); Hematocrit 48.3 % (40-54); Hemoglobin 16.7 g/dL (13.0-16.5); Lymphocyte # 3.26 X10^3/ul (0.83-4.51); Lymphocyte % 31.4 % (19-41); Mean Corp Hgb Conc 34.6 g/dL (32-36); Mean Corpuscular Hgb 31.4 pg (27.0-32.0); Mean Corpuscular Volume 90.8 fL (80-94); Mean Platelet Vol. 9.7 fl (6.2-12.0); Monocyte# 1.49 X10^3/uL; Monocyte% 14.4 % (0-10); NRBC Flagged by Analyzer 0 % (0-5); Neutrophil # 5.48 X10^3/uL (2.7-7.7); Neutrophil % 52.7 % (47-70); Platelet Count 240 K/mm3 (150-450); RBC Distribution Width CV 11.7 % (11.6-14.6); RBC Distribution Width SD 38.8 fl (35.1-43.9); Red Blood Count 5.32 M/mm3 (4.6-6.2); White Blood Count 10.4 K/mm3 (4.4-11.0)
[2023-11-12 20:35] VITALS: BP 158/106; BP 162/119; BP 173/124; PULSE 100; PULSE 113
[2023-11-12] MEDS: 0.9% Normal Saline (1000mL) 1,000 ML 999 ML IV (20:41)
--- NOTE | 2023-11-12 20:46 | EX.ED.DYSGE1 ---
HPI History of Present Illness Chief Complaint: Syncope [facility] Medical History (Updated 11/12/23 @ 20:24 by Mariela Mcdowell) Hyperlipemia Myocardial infarct Tuberculosis Home Medications nitroglycerin 0.4 mg sublingual tablet 0.4 mg sublingual Q5M PRN chest pain 03/09/20 [History Last Taken 11/12/23] aspirin 81 mg tablet,delayed release 81 mg PO DAILY@0800 #30 tabs 03/10/20 [Rx Last Taken Unknown] atorvastatin 40 mg tablet 40 mg PO QHS #30 tabs 03/10/20 [Rx Last Taken Unknown] Allergy/AdvReac Type Severity Reaction Status Date / Time Txkwhuy-RRS-HrS Reductase Allergy Intermediate Rash Verified 11/12/23 20:25 Inhibitor ibuprofen [From Motrin] Allergy Unknown Verified 11/12/23 20:25 Sulfa (Sulfonamide Allergy Hives Verified 11/12/23 20:25 Antibiotics) adhesive tape [tape] AdvReac NEEDS Verified 11/12/23 20:25 FOLLOW-UP warfarin AdvReac PT UNSURE Verified 11/12/23 20:25 OF REACTION Surgical History Stented coronary artery Social History Smoking Status: Current every day smoker tobacco type: cigarettes EXAM Physical Exam Const Vital Signs: 11/12/23 20:02 11/12/23 20:17 11/12/23 20:20 Temperature 97.5 F L Temperature Source Temporal Pulse Rate 110 H 106 H Pulse Rate [Lying] Pulse Rate [Sitting (for 1 minute prior to obtaining)] Pulse Rate [Standing (for 1 minute prior to obtaining)] Respiratory Rate 17 17 Respiratory Effort Normal Respiratory Pattern Normal Blood Pressure 160/114 H 160/107 H Blood Pressure [Lying] Blood Pressure [Sitting (for 1 minute prior to obtaining)] Blood Pressure [Standing (for 1 minute prior to obtaining)] Blood Pressure Mean 129 124 Blood Pressure Mean [Lying] Blood Pressure Mean [Sitting (for 1 minute prior to obtaining)] Blood Pressure Mean [Standing (for 1 minute prior to obtaining)] Pulse Ox 94 96 Oxygen Delivery Method Room Air Room Air 11/12/23 20:35 Temperature Temperature Source Pulse Rate Pulse Rate [Lying] 100 Pulse Rate [Sitting (for 1 minute prior to obtaining)] 100 Pulse Rate [Standing (for 1 minute prior to obtaining)] 113 H Respiratory Rate Respiratory Effort Respiratory Pattern Blood Pressure Blood Pressure [Lying] 158/106 H Blood Pressure [Sitting (for 1 minute prior to obtaining)] 173/124 H Blood Pressure [Standing (for 1 minute prior to obtaining)] 162/119 H Blood Pressure Mean Blood Pressure Mean [Lying] 123 Blood Pressure Mean [Sitting (for 1 minute prior to obtaining)] 140 Blood Pressure Mean [Standing (for 1 minute prior to obtaining)] 133 Pulse Ox Oxygen Delivery Method MDM MDM MDM Narrative Medical decision making narrative: I have personally performed a face to face assessment of the patient and have reviewed the NIK Note. I performed a substantive portion of the visit including all aspects of the following. My murry findings include: History: Patient presents feeling well. He does state he has had some lightheadedness syncope. But he states he has had this since he was a teenager. It is not worse it is not better it is not different. I asked why he came in today versus one of the other days and he states it is because he just does not feel well. He was sleeping more today. It sounds like he has had some more nausea today. No pains no cough no trouble breathing. He does admit to not eating or drinking much but he has not actually vomited. Exam: Patient awake alert no acute distress. Mucous membranes still seem moist. Lungs are clear. Heart is a little tachycardic. Abdomen is soft is nontender. No rebound or guarding. No CVA tenderness. No sign of trauma to extremities. Neurologically is awake alert and appropriate. Medical Decision Making: We will give the patient some IV fluids. Check blood work. I will add COVID studies as he seems to be complaining of just not feeling well as his main complaint or the only thing that is different. Lab Data Attestation: I reviewed the patient's lab results. Labs: Laboratory Results - last 24 hr 11/12/23 20:15 WBC 10.4 RBC 5.32 Hgb 16.7 H Hct 48.3 MCV 90.8 MCH 31.4 MCHC 34.6 RDW Std Deviation 38.8 RDW Coeff of Lizett 11.7 Plt Count 240 MPV 9.7 Immature Gran % (Auto) 0.500 Neut % (Auto) 52.7 Lymph % (Auto) 31.4 [place] % (Auto) 14.4 H Eos % (Auto) 0.3 Baso % (Auto) 0.7 Absolute Neuts (auto) 5.5 Absolute Lymphs (auto) 3.26 Nucleated RBC % 0 Discharge Plan Triage Chief Complaint: Syncope ED Midlevel Provider: Cindy Corcoran ED Provider: Hardeep Key Dx/Rx/DC Orders Prescriptions: No Action nitroglycerin 0.4 MG tablet, sublingual 0.4 mg sublingual Q5M PRN (Reason: chest pain) Patient Comments: TAKEN THIS MORNING NOT SURE WHAT TIME 11/12/23 atorvastatin 40 MG tablet 40 mg PO QHS Qty: 30 0RF Patient Comments: NOT TAKING 11/12/23 aspirin 81 MG tablet 81 mg PO DAILY@0800 Qty: 30 0RF Patient Comments: NOT TAKING 11/12/23 Primary Care Provider: Martin Mcneill Referrals: Martin Mcneill MD [Primary Care Provider] -
--- NOTE | 2023-11-12 20:54 | EX.ED.DYSGE1 ---
HPI <AYSHA Cox - Last Filed: 11/12/23 22:06> History of Present Illness Chief Complaint: Syncope Narrative Narrative: Patient presenting today due to syncopal episodes that he has had over the past 2 days. He reports that it is normal for him to have syncopal episodes and this has been going on for several years. He notices his symptoms when he is going from a laying to standing position. He reports a history of coronary artery disease with stent placement. He denies any shortness of breath, chest pain, fevers, chills, abdominal pain, nausea, and vomiting. He denies any history of blood clots, recent surgery/procedures/travel/immobilization. PFSH <AYSHA Cox - Last Filed: 11/12/23 22:06> [facility] Medical History Hyperlipemia Myocardial infarct Tuberculosis Home Medications nitroglycerin 0.4 mg sublingual tablet 0.4 mg sublingual Q5M PRN chest pain 03/09/20 [History Last Taken 11/12/23] aspirin 81 mg tablet,delayed release 81 mg PO DAILY@0800 #30 tabs 03/10/20 [Rx Last Taken Unknown] atorvastatin 40 mg tablet 40 mg PO QHS #30 tabs 03/10/20 [Rx Last Taken Unknown] Allergy/AdvReac Type Severity Reaction Status Date / Time Aaknrxk-ZMI-DiI Reductase Allergy Intermediate Rash Verified 11/12/23 20:25 Inhibitor ibuprofen [From Motrin] Allergy Unknown Verified 11/12/23 20:25 Sulfa (Sulfonamide Allergy Hives Verified 11/12/23 20:25 Antibiotics) adhesive tape [tape] AdvReac NEEDS Verified 11/12/23 20:25 FOLLOW-UP warfarin AdvReac PT UNSURE Verified 11/12/23 20:25 OF REACTION Surgical History Stented coronary artery Social History Smoking Status: Current every day smoker tobacco type: cigarettes ROS <AYSHA Cox - Last Filed: 11/12/23 22:06> ROS ED Constitutional Constitutional ED: Denies chills or fever(s) Eyes Eyes: Denies blurry vision Cardiovascular Cardiovascular: Denies chest pain or palpitations Respiratory/Chest Respiratory/Chest: Denies cough or dyspnea Gastrointestinal Gastrointestinal: Denies abdominal pain, nausea or vomiting Genitourinary Genitourinary ED: Denies dysuria, hematuria or urinary urgency Musculoskeletal Musculoskeletal: Denies arthralgias or back pain Integumentary Denies rash Neurologic Neurologic: Reports syncope EXAM <AYSHA Cox - Last Filed: 11/12/23 22:06> Physical Exam Const Vital Signs: 11/12/23 20:02 11/12/23 20:17 11/12/23 20:20 Temperature 97.5 F L Temperature Source Temporal Pulse Rate 110 H 106 H Pulse Rate [Lying] Pulse Rate [Sitting (for 1 minute prior to obtaining)] Pulse Rate [Standing (for 1 minute prior to obtaining)] Respiratory Rate 17 17 Respiratory Effort Normal Respiratory Pattern Normal Blood Pressure 160/114 H 160/107 H Blood Pressure [Lying] Blood Pressure [Sitting (for 1 minute prior to obtaining)] Blood Pressure [Standing (for 1 minute prior to obtaining)] Blood Pressure Mean 129 124 Blood Pressure Mean [Lying] Blood Pressure Mean [Sitting (for 1 minute prior to obtaining)] Blood Pressure Mean [Standing (for 1 minute prior to obtaining)] Pulse Ox 94 96 Oxygen Delivery Method Room Air Room Air 11/12/23 20:35 Temperature Temperature Source Pulse Rate Pulse Rate [Lying] 100 Pulse Rate [Sitting (for 1 minute prior to obtaining)] 100 Pulse Rate [Standing (for 1 minute prior to obtaining)] 113 H Respiratory Rate Respiratory Effort Respiratory Pattern Blood Pressure Blood Pressure [Lying] 158/106 H Blood Pressure [Sitting (for 1 minute prior to obtaining)] 173/124 H Blood Pressure [Standing (for 1 minute prior to obtaining)] 162/119 H Blood Pressure Mean Blood Pressure Mean [Lying] 123 Blood Pressure Mean [Sitting (for 1 minute prior to obtaining)] 140 Blood Pressure Mean [Standing (for 1 minute prior to obtaining)] 133 Pulse Ox Oxygen Delivery Method Positive well nourished, well developed and no apparent distress General Appearance ED: well developed HEENT Reports normocephalic and head/scalp atraumatic Mouth ED: Yes moist mucous membranes normal Eyes PERRL and EOMs intact bilaterally Neck full ROM and supple Chest Wall inspection of chest normal Resp normal respiratory effort and clear to auscultation bilaterally Cardio regular rate and regular rhythm GI soft to palpation, non-tender, non-distended and no masses Back/Spine normal ROM and normal to inspection Extremity normal to inspection and full ROM Neuro oriented x3, CN's II-XII intact bilaterally, moves all extremities, no focal motor deficits and no sensory deficits noted Sensorium / Orientation: awake and alert Psych mental status grossly normal and thought process normal Skin no rashes or lesions noted and no wounds <Dr. Hardeep Key MD - Last Filed: 11/12/23 22:00> Physical Exam Const Vital Signs: 11/12/23 20:02 11/12/23 20:17 11/12/23 20:20 Temperature 97.5 F L Temperature Source Temporal Pulse Rate 110 H 106 H Pulse Rate [Lying] Pulse Rate [Sitting (for 1 minute prior to obtaining)] Pulse Rate [Standing (for 1 minute prior to obtaining)] Respiratory Rate 17 17 Respiratory Effort Normal Respiratory Pattern Normal Blood Pressure 160/114 H 160/107 H Blood Pressure [Lying] Blood Pressure [Sitting (for 1 minute prior to obtaining)] Blood Pressure [Standing (for 1 minute prior to obtaining)] Blood Pressure Mean 129 124 Blood Pressure Mean [Lying] Blood Pressure Mean [Sitting (for 1 minute prior to obtaining)] Blood Pressure Mean [Standing (for 1 minute prior to obtaining)] Pulse Ox 94 96 Oxygen Delivery Method Room Air Room Air 11/12/23 20:35 Temperature Temperature Source Pulse Rate Pulse Rate [Lying] 100 Pulse Rate [Sitting (for 1 minute prior to obtaining)] 100 Pulse Rate [Standing (for 1 minute prior to obtaining)] 113 H Respiratory Rate Respiratory Effort Respiratory Pattern Blood Pressure Blood Pressure [Lying] 158/106 H Blood Pressure [Sitting (for 1 minute prior to obtaining)] 173/124 H Blood Pressure [Standing (for 1 minute prior to obtaining)] 162/119 H Blood Pressure Mean Blood Pressure Mean [Lying] 123 Blood Pressure Mean [Sitting (for 1 minute prior to obtaining)] 140 Blood Pressure Mean [Standing (for 1 minute prior to obtaining)] 133 Pulse Ox Oxygen Delivery Method [facility] <AYSHA Cox - Last Filed: 11/12/23 22:06> [facility] Narrative Medical decision making narrative: Patient presenting due to syncopal episodes that he has had over the past 2 days. He reports it is normal for him to have syncope. He is well-appearing and in no acute distress. He is not complaining of any chest pain or shortness of breath. He is hypertensive but reports that it is normal for his blood pressure to be high and that he was supposed to take blood pressure medication but did not tolerate it well and no longer takes it. He does have a history of conversion disorder. In reviewing previous records, he had a negative cardiac stress test March 2020. Cardiac labs will be obtained and are unremarkable. He was given IV fluids. Orthostatic vital signs are negative. He did report feeling more fatigued today which is what brought him in, COVID, influenza, and RSV swabs obtained and are negative. I did encourage him to follow-up with his PCP and have given him return instructions. He will be discharged home in stable condition and is comfortable with plan. Lab Data Attestation: I reviewed the patient's lab results. Lab results narrative: Troponin 9 Labs: Laboratory Results - last 24 hr 11/12/23 20:15 WBC 10.4 RBC 5.32 Hgb 16.7 H Hct 48.3 MCV 90.8 MCH 31.4 MCHC 34.6 RDW Std Deviation 38.8 RDW Coeff of Lizett 11.7 Plt Count 240 MPV 9.7 Immature Gran % (Auto) 0.500 Neut % (Auto) 52.7 Lymph % (Auto) 31.4 [place] % (Auto) 14.4 H Eos % (Auto) 0.3 Baso % (Auto) 0.7 Absolute Neuts (auto) 5.5 Absolute Lymphs (auto) 3.26 Nucleated RBC % 0 Sodium 136 Potassium 3.6 Chloride 106 Carbon Dioxide 21.0 Anion Gap 9 BUN 10 Creatinine 1.26 Estim Creat Clear Calc 92.21 Est GFR (MDRD) Af Amer 81 Est GFR (MDRD) Non-Af 67 BUN/Creatinine Ratio 7.9 L Glucose 108 H Calcium 8.9 Troponin I High Sens 9 Radiography X-Ray: Read by ED Physician Diagnostic Testing: Clinical Impression(s) from Imaging Studies Chest X-Ray 11/12/23 20:30 IMPRESSION: No radiographic evidence of acute cardiopulmonary disease. Electronically Signed: Austin Bridges DO at 20:51 EST , EKG Initial EKG: Comments: 103 bpm, sinus tachycardia, no ST elevation, reviewed and interpreted by attending ED physician <Dr. Hardeep Key MD - Last Filed: 11/12/23 22:00> [facility] Lab Data Labs: Laboratory Results - last 24 hr 11/12/23 20:15 WBC 10.4 RBC 5.32 Hgb 16.7 H Hct 48.3 MCV 90.8 MCH 31.4 MCHC 34.6 RDW Std Deviation 38.8 RDW Coeff of Lizett 11.7 Plt Count 240 MPV 9.7 Immature Gran % (Auto) 0.500 Neut % (Auto) 52.7 Lymph % (Auto) 31.4 Daniels % (Auto) 14.4 H Eos % (Auto) 0.3 Baso % (Auto) 0.7 Absolute Neuts (auto) 5.5 Absolute Lymphs (auto) 3.26 Nucleated RBC % 0 Sodium 136 Potassium 3.6 Chloride 106 Carbon Dioxide 21.0 Anion Gap 9 BUN 10 Creatinine 1.26 Estim Creat Clear Calc 92.21 Est GFR (MDRD) Af Amer 81 Est GFR (MDRD) Non-Af 67 BUN/Creatinine Ratio 7.9 L Glucose 108 H Calcium 8.9 Troponin I High Sens 9 Radiography Diagnostic Testing: Clinical Impression(s) from Imaging Studies Chest X-Ray 11/12/23 20:30 IMPRESSION: No radiographic evidence of acute cardiopulmonary disease. Electronically Signed: Austin Bridges DO at 20:51 EST Reading Location ID and State: [address] [place] [address] Tel [phone], Service support , Treatment and Re-Evaluation :: I have personally performed a face to face assessment of the patient and have reviewed the NIK Note. I performed a substantive portion of the visit including all aspects of the following. My murry findings include: History: Patient tells me a little bit different history. Patient states that he has had syncope since he is a teenager. Sometimes he just passes or falls out. He states is no different now than in the past. I asked him if he has had more episodes or they have had different features and he states no. He did tell others that he has had them more often recently but he denied this when I asked him. I asked him that if his syncope has not changed in 20 to 25 years what was that they got him in here today. He states he just did not feel well today and he was sleeping more and a little bit more tired. Exam: Patient awake alert. No acute distress. No sign of trauma. Mucous membranes might be slightly moist. Neck is supple. Heart is mildly tachycardic about 105. Pulses are normal distally. Lungs are completely clear saturations are normal. Abdomen is soft and completely nontender. Medical Decision Making: We will do blood work. This was overall normal. COVID and flu is negative. Chest x-ray is normal. I think patient is safe for discharge. He has chronic issues with syncope and denies any change in them. Discharge Plan Triage Chief Complaint: Syncope ED Midlevel Provider: Cindy Corcoran ED Provider: Hardeep Key Dx/Rx/DC Orders Clinical Impression: Syncope Instructions: ED Fainting, Uncertain Cause Prescriptions: No Action nitroglycerin 0.4 MG tablet, sublingual 0.4 mg sublingual Q5M PRN (Reason: chest pain) Patient Comments: TAKEN THIS MORNING NOT SURE WHAT TIME 11/12/23 atorvastatin 40 MG tablet 40 mg PO QHS Qty: 30 0RF Patient Comments: NOT TAKING 11/12/23 aspirin 81 MG tablet 81 mg PO DAILY@0800 Qty: 30 0RF Patient Comments: NOT TAKING 11/12/23 Primary Care Provider: Martin Mcneill Referrals: Martin Mcneill MD [Primary Care Provider] - 3-5 Days Activity Restrictions/Additional Instructions: Please follow-up with your PCP and return for any worsening of your symptoms. Disposition Disposition: Home, Self Care
[2023-11-12 20:58] LABS: Anion Gap 9 (5-15); BUN 10 mg/dL (7-18); BUN/Creat Ratio 7.9 RATIO (10-20); Calcium,Total 8.9 mg/dL (8.5-10.1); Chloride 106 mmol/L (98-107); Creatinine, Serum 1.26 mg/dL (0.70-1.30); EST Glomerular Filtration Rate 67 mL/min (>60); Est Glom Filt Rate - Afr Amer 81 mL/min (>60); Estimated Creatinine Clearance 92.21 ml/min; Glucose 108 mg/dL (74-106); Potassium 3.6 mmol/L (3.5-5.1); Sodium Level 136 mmol/L (136-145); Troponin-I HS 9 pg/mL (3.0-78.0)
--- OUTSIDE RECORDS SUMMARY | 2023-11-12 21:01 | XMS RPT_ITS | CCD ---
Author Name Unknown Address [address] [place] [address] Organization [facility] Care Team Providers Care Therapeutic Consultant Name Role Phone Osito VALDEZ, Martin Grullon Primary Care Provider Allergies Allergy Classification Reported Allergen(s) Allergy Type Date of Onset Reaction(s) Facility (5 sources) atorvastatin Drug Allergy 0 Myalgia [facility] Work Phone: (5 sources) Ibuprofen Drug Allergy 4 GI Upset [facility] Work Phone: (5 sources) Naproxen Drug Allergy 4 GI Upset [facility] Work Phone: (5 sources) rosuvastatin Drug Allergy 1 Hives [facility] (5 sources) Sulfonamides (Antibiotic) Propensity to adverse reactions 7 [facility] Work Phone: Medications Completed/Discontinued Medications Medication Drug Class(es) Dates Sig (Normalized) Sig (Original) amLODIPine 5 mg oral tablet (2 sources) Dihydropyridine [facility] Denisha Start: 06-28-2022 End: 07-28-2022 take 1 tablet by mouth once daily amLODIPine (NORVASC) 5 mg tablet Indications: Hypertension, essential Take 1 tablet by mouth once daily. 30 tablet 5 06/28/2022 Active Problems Active Problems Problem Classification Problem Date Documented Da te Episodic/Chronic Acute myocardial infarction (10 sources) Acute myocardial infarction; Translations: [Acute myocardial infarction, unspecified] Onset: 12-19-2013 12-19-2013 Chronic Adjustment disorders (6 sources) Adjustment disorder with mixed anxiety and depressed mood; Translations: [Adjustment disorder with mixed anxiety and depressed mood] Onset: 08-11-2014 08-11-2014 Chronic Anxiety disorders (6 sources) Anxiety; Translations: [Anxiety disorder, unspecified] Onset: 10-19-2014 10-19-2014 Chronic Coronary atherosclerosis and other heart disease (13 sources) Coronary arteriosclerosis; Translations: [Atherosclerotic heart disease of [place] coronary artery without angina pectoris] Onset: 04-14-2014 04-14-2014 Chronic Essential hypertension (8 sources) Essential hypertension; Translations: [Essential (primary) hypertension] Onset: 10-27-2021 10-27-2021 Chronic Immunizations and screening for infectious disease (1 source) Patient encounter status; Translations: [Encounter for immunization] Episodic Miscellaneous mental health disorders (10 sources) Psychologic conversion disorder; Translations: [Conversion disorder with seizures or convulsions] Onset: 06-11-2014 06-11-2014 Chronic Other aftercare (1 source) Marijuana user; Translations: [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 therapy] Episodic Other circulatory disease (5 sources) History of angioplasty; Translations: [Peripheral vascular angioplasty status with implants and grafts] Onset: 11-02-2015 11-02-2015 Chronic Substance-related disorders (8 sources) Tobacco user; Translations: [Nicotine dependence, unspecified, uncomplicated] 09-03-2007 Chronic Past or Other Problems Problem Classification Problem Date Documented Da te Episodic/Chronic Fracture of upper limb (5 sources) Closed fracture of head of left radius; Translations: [Displaced fracture of head of left radius, initial encounter for closed fracture] Onset: 02-12-2014 02-12-2014 Episodic Tuberculosis (5 sources) Tuberculosis of lung with cavitation; Translations: [Tuberculosis of lung] Onset: 09-03-2007 09-03-2007 Episodic Results Test Name Value Interpretation Reference Range Facil ity Vital Signs Date Time Vital Sign Value Performing Clinician Faci lity 06-28-2022 16:32-0400 Body height 184 cm Carissa Keenan APRN.CNP Work Phone: [facility] 06-28-2022 16:32-0400 Body weight 98.88 kg Carissa Keenan APRN.CNP Work Phone: [facility] 06-28-2022 16:32-0400 Diastolic blood pressure 98 mm[Hg] Carissa Keenan APRN.CNP Work Phone: [facility] 06-28-2022 16:32-0400 Heart rate 110 /min Carissa Tannhof PANTS CLOSER.MACHINE WASHER Work Phone: [facility] 06-28-2022 16:32-0400 Respiratory rate 16 /min Carissa Tannhof PANTS CLOSER.MACHINE WASHER Work Phone: [facility] 06-28-2022 16:32-0400 SaO2% (BldA) [Mass fraction] 96 % Carissa Tannhof PANTS CLOSER.MACHINE WASHER Work Phone: [facility] 06-28-2022 16:32-0400 Systolic blood pressure 150 mm[Hg] Carissa Tannhof PANTS CLOSER.MACHINE WASHER Work Phone: [facility] 05-08-2022 16:44-0400 Body weight 99.2 kg Martin Mcneill MD Work Phone: [facility] 05-08-2022 16:44-0400 Diastolic blood pressure 88 mm[Hg] Martin Mcneill MD Work Phone: [facility] 05-08-2022 16:44-0400 Heart rate 84 /min Martin Mcneill MD Work Phone: [facility] 05-08-2022 16:44-0400 Respiratory rate 16 /min Martin Mcneill MD Work Phone: [facility] 05-08-2022 16:44-0400 Systolic blood pressure 120 mm[Hg] Martin Mcneill MD Work Phone: [facility] 01-26-2022 16:36-0400 Diastolic blood pressure 100 mm[Hg] Martin Mcneill MD Work Phone: [facility] 01-26-2022 16:36-0400 Systolic blood pressure 156 mm[Hg] Martin Mcneill MD Work Phone: [facility] 01-26-2022 16:34-0400 Body weight 96.71 kg Martin Mcneill MD Work Phone: [facility] 01-26-2022 16:34-0400 Heart rate 80 /min Martin Mcneill MD Work Phone: [facility] 01-26-2022 16:34-0400 Respiratory rate 16 /min Martin Mcneill MD Work Phone: [facility] Encounters Encounter Date Encounter Type Care Provider Facility Start: 07-25-2023 Telephone encounter Martin fagan MD Work Phone: [facility] Start: 06-28-2022 End: 06-28-2022 Patient encounter procedure Carissa Keenan PANTS CLOSER.MACHINE WASHER Work Phone: [facility] Procedures Date Procedure Procedure Detail Performing Clinician Start: 05-08-2022 Adult depression screening assessment Martin Mcneill MD Work Phone: Start: 06-28-2021 Lipid 1996 panel - S briseida or Plasma Martin Mcneill MD Work Phone: Start: 04-20-2021 Adult depression screening assessment Martin Mcneill MD Work Phone: Plan of Treatment Date Care Activity Detail Author Start: 06-28-2032 Urine microalbumin profile [facility] Start: 06-28-2026 Lipid 1996 panel - S briseida or Plasma Lipid Screening [facility] Start: 06-28-2026 LIPID SCREEN LIPID SCREEN [facility] Start: 06-28-2023 ANNUAL PCP TEAM WELFARE WORKER RAMANDEEP DISEASE VISIT ANNUAL PCP TEAM CHRONIC DISEASE VISIT [facility] Start: 06-01-2023 Influenza vaccination Influenza Vacc ine (#1) [facility] Start: 05-08-2023 Adult depression scr eening assessment DEPRESSION SCREENING [facility] Start: 05-08-2023 ANNUAL PCP TEAM WELFARE WORKER RAMANDEEP DISEASE VISIT ANNUAL PCP TEAM CHRONIC DISEASE VISIT [facility] Start: 01-26-2023 ANNUAL PCP TEAM WELFARE WORKER RAMANDEEP DISEASE VISIT ANNUAL PCP TEAM CHRONIC DISEASE VISIT [facility] Start: 01-26-2023 COVID-19 VACCINE (#1) COVID-19 VACCI NE (#1) [facility] Immunizations Immunization Date Immunization Notes Care Provider Fa cility 06-28-2022 tetanus toxoid, redu ghislaine diphtheria toxoid, and acellular pertussis vaccine, adsorbed Carissa Keenan PANTS CLOSER.MACHINE WASHER Work Phone: [facility] 10-31-2017 influenza virus vaccine, unspecified formulation Martin Mcneill MD Work Phone: [facility] Payers Date Payer Category Payer Unknown [employer] PPO OOS [id number] 2021-Present [phone] [address] [place] [address] PPO [id number] 2021 Unknown [employer] PPO OOS [id number] 2021-Present [phone] [address] [place] [address] PPO [id number] Social History Date Type Detail Facility Start: 07-01-2014 End: 05-08-2022 Tobacco smoking status NHIS Smokes tobacco daily [facility] Start: 07-01-2014 History of tobacco use Cigarette Smo ker [facility] Start: 11-02-2015 End: 10-26-2022 Cigarettes smoked current (pack per day) - Reported 1 [facility] Start: 11-02-2015 End: 05-08-2022 Tobacco use and exposure Smokeless tobacco non-user [facility] Start: 10-27-2021 End: 06-28-2022 Alcohol intake Current non-drinker of alcohol (finding) [facility] Start: 1980 Sex Assigned At Not on file [facility] Start: 01-16-2022 End: 06-28-2022 Exposure to SARS-CoV-2 (event) Not sure [facility] Start: 06-28-2022 End: 10-26-2022 Tobacco use panel [facility] Adult Depression Scr eening Assessment 0 [facility] Note 07-25-2023 Telephone Encounter - Digna Her LPN - 07/25/2023 11:03 AM EDT Note Date & Type Note Facility 07-25-2023 Miscellaneous Notes Formattin g of this note might be different from the original. Pt came into office looking for forms he was told to knot picker cloth. Found papers, made a copy and gave originals to Pt. Digna Her LPN documented in this encounter [facility] Instructions 06-28-2022 Patient Instructions Note Date & Type Note Facility 06-28-2022 Instructions Carissa Keenan APRN.ELENA - 06/28/2022 4:53 PM EDT 1.) Get labs completed in November 2.) Start amlodipine 5 mg daily, continue to monitor blood pressure at home. 3.) Recommend establishing care with cardiology. 4.) Recommend smoking cessation. 5.) Follow in 1 month if needed for blood pressure check You were given Tdap booster today. Health Promotion: - Eat healthy -- go to [employer] to get started - Have a yearly physical - Get at least 30 minutes of physical activity daily - Get at least 7 to 8 hours of sleep each night - Reach and maintain a healthy weight - Get help to quit or don't start smoking - Limit alcohol use to one drink or less - Do not use illegal drugs or misuse prescription drugs - Wear a helmet when riding a bike and wear protective gear for sports - Wear a seatbelt in cars and not text and drive - Wear sunscreen documented in this encounter [facility] History of Present illness Narrative 06-28-2022 Carissa Keenan APRN.ELENA - 06/28/2022 4:40 PM EDT Note Date & Type Note Facility 06-28-2022 History of Presen t illness Narrative This is a 41 year old male who presents today with: Patient presents with: Physical HISTORY OF PRESENT ILLNESS: Jadon Buck is a 41 year old male. Patient presents with: Physical Here in the office for wellness exam. Diet: Eating a well balanced diet. Exercise: Walking daily with work. Vision: Due for exam, wears glasses. Dental: Due for exam, no difficulties. Sleep: 8-10 hours per night. Mood: Denies any increased sadness, anxiety, or SI/Hi. HTN: Taking losartan 100 mg and metoprolol succinate ER 25 mg daily, but refers he stopped medication around . Developed sores to legs, thought this was caused from medication. Refers that his BP is always high even when taking medication. Checking blood pressure at home randomly, 120-150's/80's. Has nitro tablets that he can use as needed for chest pain. Has a history of UT in the past. Not seeing cardiology, refers he did not like registry rn in the past. Smokin PPD, has been trying to quit but smoking has been helpful when feeling stressed. Vaccines: Due for Tdap. Labs are due, PCP placed to have completed in November. PAST MEDICAL HISTORY: PAST MEDICAL HISTORY Diagnosis Date AMI (acute myocardial infarction) (HCC) 11/2013 Anxiety 10/19/2014 Chiari I malformation ([facility]) mild right, ventricle asymmetry Conversion disorder with attacks or seizures 2013 negative EEG 03/2014 TB vs + PPD only Says was treated for TB at age 20, + PPD, unclear if had active disease Tobacco use disorder age 19 PAST SURGICAL HISTORY Procedure Laterality Date HEART CATHETERIZATION 12/03/2013 LAD stent LEFT HEART CATH,PERCUTANEOUS 12/26/2013 Cardiac cath, L heart ALLERGIES Crestor [Rosuvastatin], Ibuprofen, Lipitor [Atorvastatin], Naproxen, and Sulfa (Sulfonamide Antibiotics) MEDICATIONS Current Outpatient Medications Medication Sig nitroglycerin sublingual (NITROSTAT) 0.4 mg SL tablet Dissolve 1 tablet under the tongue every 5 minutes as needed for chest pain. losartan (COZAAR) 100 mg tablet Take 1 tablet by mouth once daily. aspirin, enteric coated (ECOTRIN LOW STRENGTH) 81 mg EC tablet Take 1 tablet by mouth once daily. metoprolol succinate ER (TOPROL XL) 25 mg 24 hr tablet Take 1 tablet by mouth once daily. No current facility-administered medications for this visit. FAMILY HISTORY Problem Relation Age of Onset Diabetes Mother None Father Colon Cancer Other none Coronary Artery Disease Other none Social History Tobacco Use Smoking status: Every Day Packs/day: 1.00 Years: 8.00 Pack years: 8.00 Types: Cigarettes Start date: 07/01/2014 Smokeless tobacco: Never Vaping Use Vaping Use: Never used Substance Use Topics Alcohol use: No Drug use: Yes Comment: History IV drug use, marijuana. Uses Medical marijuana REVIEW OF SYSTEMS GENERAL: No weight loss, malaise or fevers/chills HEENT: Negative for frequent or significant headaches, No changes in hearing or vision. NECK: Negative for lumps, goiter, pain and significant neck swelling RESPIRATORY: Negative for cough, hemoptysis, wheezing, dyspnea or shortness of breath CARDIOVASCULAR: Negative for chest pain, leg swelling, orthopnea, or palpitations GI: No nausea, vomiting, or diarrhea/constipation. No hematochezia/melena. No heartburn or reflux symptoms. : No history of dysuria, frequency or incontinence MUSCULOSKELETAL: Negative for joint pain or swelling. SKIN: Negative for lesions, rash, and itching ENDOCRINE: Negative for cold or heat intolerance, polyuria, polydipsia and goiter NEURO: No history of headaches, syncope, paralysis, seizures or tremors MOOD: Negative for depression, anxiety, or suicidal ideation. EXAM: BP 150/98 Pulse 110 Resp 16 Ht 184 cm (6' 0.44 ) Wt 98.9 kg (218 lb) SpO2 96% BMI 29.21 kg/m PHYSICAL EXAM: General Appearance: Well appearing, alert, in no acute distress, well-hydrated, well nourished. Skin: Skin color, texture, turgor normal, no suspicious rashes or lesions. Head: Normocephalic, no masses, lesions, tenderness or abnormalities. Eyes: Anicteric sclera. Pupils are equally round and reactive to light. Extraocular movements are intact. Ears: External ears normal, canals clear. TM's pearly gaines. Neck: Supple, no adenopathy; thyroid symmetric, normal size, no bruits. Lungs: Lungs clear to auscultation. No wheezing, rhonchi, rales.. Heart: RRR without murmur, gallop, or rubs. No ectopy. Abdomen: Normal abdominal exam, Abdomen soft, non-tender. Bowel sounds normal. No masses, organomegaly, Negative CVA tenderness. Extremities: No deformities, edema, skin discoloration, clubbing or cyanosis. Good capillary refill. Musculoskeletal: No joint swelling, deformity, or tenderness. Peripheral Pulses: Normal, Capillary refill <2secs, strong peripheral pulses, Pulses palpable. Neurologic: Gait normal. Sensation grossly intact. Mood: Pleasant, engaged, good eye contact. ASSESSMENT/PLAN: 1. Wellness examination - ICD9: V70.0, ICD10: Z00.00 (primary diagnosis) - Counseled on healthy diet and regular exercise - Smoking cessation encouraged; discussed risks to health and quitting strategies. Patient is contemplative - Depression screening tool completed and reviewed with patient. Based on score and interview, patient is not at risk for depression and recommended no further intervention at this time. - Patient was counseled [id number] by myself (the billing provider) for the following immunizations and vaccine components, including side effects: DTaP. Patient consents for immunization and understands risks and benefits. A VIS sheet on each immunization was given to the patient. - Follow up for annual exam in one year 2. Hypertension, essential - ICD9: 401.9, ICD10: I10 - poor control - noncompliance - Begin amlodipine (Norvasc) - Recommended regular aerobic exercise. - Recommend home blood pressure monitoring, to bring results in on next visit - Follow up in 1 month for BP recheck. - Goal of BP <130/80 - Patient counselled on smoking cessation. - Recommend home or pharmacy blood pressure monitoring - AMLODIPINE 5 MG TABLET - CONSULT TO CARDIOLOGY 3. History of UT (myocardial infarction) - ICD9: 412, ICD10: I25.2 - Recommend consult with cardiology. - CONSULT TO CARDIOLOGY 4. Tobacco use disorder - ICD9: 305.1, ICD10: F17.200 - Cessation encouraged. - Physiologic and physical aspects of tobacco addiction as well as strategies for quitting were discussed. - Counseling was given focusing on the harmful effects of this addiction especially given the patient's medical condition(s) which will be worsened because of the chemicals in tobacco. - Counseling was given 3-4 minutes. 5. Encounter for immunization - ICD9: V03.89, ICD10: Z23 - Vis provided. - TDAP VACCINE AGE 7+ IM Follow up in 1 month or sooner as needed. Discussed treatment plan and patient voices understanding. Patient's questions answered appropriately. Medications and potential side effects were discussed and patient voices understanding. Carissa Keenan APRN.ELENA This note was partially generated using [employer] voice recognition system. Note was reviewed for accuracy. There may be minor misspellings or grammar miscues with [employer] voice recognition. documented in this encounter [facility] History of Present illness Narrative 05-08-2022 Martin Mcneill MD - 05/08/2022 4:40 PM EDT Note Date & Type Note Facility 05-08-2022 History of Presen t illness Narrative Chief Complaint Patient presents with: F/U 3 Month HPI Jadon Buck is a 41 year old male who presents here today for 3 month follow up. Still smoking. No bowel, Gi, or urinary issues. HTN/CAD: Taking Losartan 100 mg daily which was increased last visit. Also on Metoprolol 25 mg daily. No dizziness, or SOB., admits to occ chest pains but nothing worse or different. He does have Nitro to use prn. Checks BP occ at home. Stress has been better. Past medical history, appointments, medications, allergies reviewed. Previous Medical History PAST MEDICAL HISTORY Diagnosis Date AMI (acute myocardial infarction) ([facility]) 11/2013 Anxiety 10/19/2014 Chiari I malformation ([facility]) mild right, ventricle asymmetry Conversion disorder with attacks or seizures 2013 negative EEG 03/2014 TB vs + PPD only Says was treated for TB at age 20, + PPD, unclear if had active disease Tobacco use disorder age 19 Previous Surgical History PAST SURGICAL HISTORY Procedure Laterality Date HEART CATHETERIZATION 12/03/2013 LAD stent LEFT HEART CATH,PERCUTANEOUS 12/26/2013 Cardiac cath, L heart Family History FAMILY HISTORY Problem Relation Age of Onset Diabetes Mother None Father Colon Cancer Other none Coronary Artery Disease Other none Patient Allergies ALLERGIES Allergen Reactions Crestor [Rosuvastat* Hives Ibuprofen GI Upset Lipitor [Atorvastat* Myalgia Naproxen GI Upset Sulfa (Sulfonamide * Current Medications Current Outpatient Medications on File Prior to Visit Medication Sig nitroglycerin sublingual (NITROSTAT) 0.4 mg SL tablet Dissolve 1 tablet under the tongue every 5 minutes as needed for chest pain. losartan (COZAAR) 100 mg tablet Take 1 tablet by mouth once daily. aspirin, enteric coated (ECOTRIN LOW STRENGTH) 81 mg EC tablet Take 1 tablet by mouth once daily. metoprolol succinate ER (TOPROL XL) 25 mg 24 hr tablet Take 1 tablet by mouth once daily. No current facility-administered medications on file prior to visit. Social History Social History Tobacco Use Smoking status: Every Day Packs/day: 1.00 Years: 8.00 Pack years: 8.00 Types: Cigarettes Start date: 07/01/2014 Smokeless tobacco: Never Vaping Use Vaping Use: Never used Substance Use Topics Alcohol use: No Drug use: Yes Comment: History IV drug use, marijuana. Uses Medical marijuana EXAM: BP 120/88 Pulse 84 Resp 16 Wt 99.2 kg (218 lb 11.2 oz) BMI 27.34 kg/m General Appearance: Well appearing, alert, in no acute distress, well-hydrated, well nourished.. Lungs: Lungs clear to auscultation. No wheezing, rhonchi, rales.. Heart: RRR without murmur, gallop, or rubs. No ectopy. Health Maintenance List PNEUMOCOCCAL(1 - PCV) Never done BP CONTROLLED (<130/80) Never done DTAP,TDAP,TD(1 - Tdap) Never done DEPRESSION SCREENING due on 04/20/2022 COVID-19 VACCINE(1) due on 01/26/2023 INFLUENZA(1) due on 06/01/2022 LDL CHOLESTEROL due on 06/28/2022 ANNUAL PCP TEAM CHRONIC DISEASE VISIT due on 01/26/2023 LIPID SCREEN due on 06/28/2026 HEPATITIS C SCREENING Completed HIV SCREENING Discontinued Data reviewed None ASSESSMENT/PLAN: 1. Hypertension, essential - ICD9: 401.9, ICD10: I10 (primary diagnosis) - good control - Continue current medication(s) - Recommended regular aerobic exercise. - Recommend home blood pressure monitoring, to bring results in on next visit - Goal of BP <130/80 2. Tobacco use disorder - ICD9: 305.1, ICD10: F17.200 - Cessation encouraged. - Physiologic and physical aspects of tobacco addiction as well as strategies for quitting were discussed. - Counseling was given focusing on the harmful effects of this addiction especially given the patient's medical condition(s) which will be worsened because of the chemicals in tobacco. - Counseling was given 3-4 minutes. Follow up in 6 months with fasting labs prior. I agree with the Chief Complaint, ROS, and Past Histories independently gathered by the clinical administrative support technician and the remaining scribed note accurately describes my personal service to the patient. Medical Decision Making: Problems: Low: Stable chronic illness Data: Unique test(s) ordered: 3+ Risk: Moderate: Drug management Medical Decision Making Level: 4 - Moderate Martin Mcneill MD. The documentation for this note was completed by Michelle Rangel Ma acting as scribe for Martin Mcneill MD. May 08, 2022 4:29 PM. Michelle Rangel Ma documented in this encounter [facility] Instructions 01-26-2022 Patient Instructions Note Date & Type Note Facility 01-26-2022 Instructions Agatha Whiting Ma - 01/26/2022 4:46 PM EDT Increase Losartan from 50 mg to 100 mg daily. Finish current prescription you have at home, taking 2 tablets once daily. New prescription for the 100 mg once daily has been sent to [facility]. Have intermittent FMLA paperwork faxed to our office at [phone]. documented in this encounter [facility] History of Present illness Narrative 01-26-2022 Martin Mcneill MD - 01/26/2022 4:40 PM EDT Note Date & Type Note Facility 01-26-2022 History of Presen t illness Narrative Chief Complaint Patient presents with: F/U 3 Month HPI Jadon Buck is a 41 year old male who presents here today for a 3 month follow up. Pt here today for a 3 month follow up. Has contacted the office recently requesting FMLA paperwork that has been completed for him in the past and giving them to an Catalyst Unit Operator. Smoking - Continues to still smoke about 0.5 ppd. Trying to cut back, notes he smokes more with higher stress levels. HTN/CAD - Checks BP occasionally at home, states it's better then it was but varies. Denies any chest pain, sob or dizziness. Wants to see a different Sociology Instructor as Dr. Pruitt and he did not work out. On current regimen of Losartan 100 mg once daily and Nitro prn. Was prescribed Toprol XL 25 mg once daily, but never took it. Has Medical Marijuana card from Dr. Abisai Nelson in [place] for his anxiety and PTSD.. States that this helps him incredibly and also to stay calm. Currently working at [employer], has been there for a year. 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 He states that he needs intermittent FMLA paperwork completed again, but his job states that they do not have forms. 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 He will try to get the forms to restart this. Generally pt takes off when needed, unsure of his frequency as it's too hard to tell. Previous paperwork seem to satisfy what was needed. Has not missed any work up until this point. HM - Declines Covid vaccine. Past medical history, appointments, medications, allergies reviewed. Previous Medical History PAST MEDICAL HISTORY Diagnosis Date AMI (acute myocardial infarction) (HCC) 11/2013 Anxiety 10/19/2014 Chiari I malformation ([facility]) mild right, ventricle asymmetry Conversion disorder with attacks or seizures 2013 negative EEG 03/2014 TB vs + PPD only Says was treated for TB at age 20, + PPD, unclear if had active disease Tobacco use disorder age 19 Previous Surgical History PAST SURGICAL HISTORY Procedure Laterality Date HEART CATHETERIZATION 12/03/2013 LAD stent LEFT HEART CATH,PERCUTANEOUS 12/26/2013 Cardiac cath, L heart Family History FAMILY HISTORY Problem Relation Age of Onset Diabetes Mother None Father Colon Cancer Other none Coronary Artery Disease Other none Patient Allergies ALLERGIES Allergen Reactions Crestor [Rosuvastat* Hives Ibuprofen GI Upset Lipitor [Atorvastat* Myalgia Naproxen GI Upset Sulfa (Sulfonamide * Current Medications Current Outpatient Medications on File Prior to Visit Medication Sig aspirin, enteric coated (ECOTRIN LOW STRENGTH) 81 mg EC tablet Take 1 tablet by mouth once daily. metoprolol succinate ER (TOPROL XL) 25 mg 24 hr tablet Take 1 tablet by mouth once daily. losartan (COZAAR) 50 mg tablet Take 1 tablet by mouth once daily. nitroglycerin sublingual (NITROSTAT) 0.4 mg SL tablet Dissolve 1 tablet under the tongue every 5 minutes as needed for Chest Pain. No current facility-administered medications on file prior to visit. Social History Social History Tobacco Use Smoking status: Current Every Day Smoker Packs/day: 1.00 Years: 8.00 Pack years: 8.00 Types: Cigarettes Start date: 07/01/2014 Smokeless tobacco: Never Used Vaping Use Vaping Use: Never used Substance Use Topics Alcohol use: No Drug use: No Comment: History IV drug use, marijuana EXAM: BP 156/100 Pulse 80 Resp 16 Wt 96.7 kg (213 lb 3.2 oz) BMI 26.65 kg/m General Appearance: Well appearing, alert, in no acute distress, well-hydrated, well nourished.. Lungs: Lungs clear to auscultation. No wheezing, rhonchi, rales.. Heart: RRR without murmur, gallop, or rubs. No ectopy. Health Maintenance List COVID-19 VACCINE(1) Never done BP CONTROLLED (<130/80) Never done DTAP,TDAP,TD(1 - Tdap) Never done ONE PNEUMOVAX PRIOR TO AGE 65 Never done DEPRESSION SCREENING due on 04/20/2022 INFLUENZA(Season Ended) due on 06/01/2022 LDL CHOLESTEROL due on 06/28/2022 ANNUAL PCP TEAM CHRONIC DISEASE VISIT due on 10/27/2022 LIPID SCREEN due on 06/28/2026 HEPATITIS C SCREENING Completed MENINGOCOCCAL CONJUGATE Aged Out HIV SCREENING Discontinued Data reviewed Epic ASSESSMENT/PLAN: 1. Coronary artery disease without angina pectoris, unspecified vessel or lesion type, unspecified whether [place] or transplanted heart - ICD9: 414.00, ICD10: I25.10 (primary diagnosis) - Continue current medication regimen. - NITROGLYCERIN 0.4 MG SUBLINGUAL TABLET 2. Hypertension, essential - ICD9: 401.9, ICD10: I10 - poor control - Increase Losartan to 100 mg daily - Recommended regular aerobic exercise. - Recommend home blood pressure monitoring, to bring results in on next visit - Goal of BP <130/80 - LOSARTAN 50 MG TABLET 3. Tobacco use disorder - ICD9: 305.1, ICD10: F17.200 - Cessation encouraged. - Physiologic and physical aspects of tobacco addiction as well as strategies for quitting were discussed. - Counseling was given focusing on the harmful effects of this addiction especially given the patient's medical condition(s) which will be worsened because of the chemicals in tobacco. 4. Anxiety - ICD9: 300.00, ICD10: F41.9 - Continue current medication regimen. 5. Adjustment disorder with mixed anxiety and depressed mood - ICD9: 309.28, ICD10: F43.23 - Continue current medication regimen. 6. Medical marijuana use - ICD9: V58.69, ICD10: Z79.899 - cont f/u with Specialist 3 month f/u I agree with the Chief Complaint, ROS, and Past Histories independently gathered by the clinical administrative support technician and the remaining scribed note accurately describes my personal service to the patient. Medical Decision Making: Problems: Moderate: 2+ stable chronic illnesses Risk: Moderate: Drug management Medical Decision Making Level: 4 - Moderate Martin Mcneill MD The documentation for this note was completed by Agatha Whiting Ma acting as scribe for Martin Mcneill MD. January 26, 2022 4:49 PM. Agatha Whiting Ma documented in this encounter [facility] Note 12-30-2021 Telephone Encounter - Agatha Whiting Ma - 12/30/2021 4:43 PM EDTTelephone Encounter - Keyana Price RN - 12/30/2021 4:09 PM EDT Note Date & Type Note Facility 12-30-2021 Miscellaneous Notes Pt called and notified that we've faxed documents with on 12/18/20 and in March of 2020. 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 Pt would like to knot picker cloth a copy on Sunday with the encounter stating when we faxed the paperwork. Pt made aware he could knot picker cloth Sunday at [facility] to give to [employer] Unit Operator. Agatha Whiting Ma Pt called in and reports that he needs the paperwork from his last 2 FMLAs. It looks like they were fro 04/01/20 and 12/15/20. He states that he is being told that the paperwork was never sent in. Please call and advise. documented in this encounter [facility] Evaluation note Note Date & Type Note Facility documented in this encounter [facility] Evaluation note Note Date & Type Note Facility documented in this encounter [facility] Evaluation note Note Date & Type Note Facility documented in this encounter [facility] Reason for Referral Specialty Diagnoses / Procedures Referred By Contac t Referred To Contact Cardiology Diagnoses Hypertension, essential History of UT (myocardial infarction) Procedures CONSULT TO CARDIOLOGY OFFICE/OUTPATIENT NEW HIGH MDM 60-74 MINUTES Carissa Keenan APRN.[employer] [address] [place] [address] Referral ID Status Reason Start Date Expiration Date Visits Requested Visits Authorized [id number] Authorized PCP Requested Referral 06/28/2022 06/28/2023 1 1 Summary Purpose Family History No Family History Records Found Advance Directives No Advanced Directives Records Found Additional Source Comments Source Comments (unrecognize d section and content) In the event this informatio n is protected by the Federal Confidentiality of Alcohol and Drug Abuse Patient Records regulations: The Federal rules restrict any use of the information to criminally investigate or prosecute any alcohol or drug abuse patient.[facility] the event this information is protected by the Federal Confidentiality of Alcohol and Drug Abuse Patient Records regulations: The Federal rules restrict any use of the information to criminally investigate or prosecute any alcohol or drug abuse patient.[facility] the event this information is protected by the Federal Confidentiality of Alcohol and Drug Abuse Patient Records regulations: The Federal rules restrict any use of the information to criminally investigate or prosecute any alcohol or drug abuse patient.[facility] the event this information is protected by the Federal Confidentiality of Alcohol and Drug Abuse Patient Records regulations: The Federal rules restrict any use of the information to criminally investigate or prosecute any alcohol or drug abuse patient.[facility] the event this information is protected by the Federal Confidentiality of Alcohol and Drug Abuse Patient Records regulations: The Federal rules restrict any use of the information to criminally investigate or prosecute any alcohol or drug abuse patient.[facility] Reason for Visit (unrecogniz ed section and content) Reason Comments F/U 3 Month Reason Comments Physical Care Teams (unrecognized sec tion and content) Therapeutic Consultant Relationship Specialty Start Date End Date Martin Mcneill MD [address] [place], [place] [id number] PCP - General Family Practice 11/02/15 Therapeutic Consultant Relationship Specialty Start Date End Date Martin Mcneill MD [address] [place], [place] [id number] PCP - General Family Practice 11/02/15 Therapeutic Consultant Relationship Specialty Start Date End Date Martin Mcneill MD [address] [place], [place] [id number] PCP - General Family Medicine 11/02/15 Therapeutic Consultant Relationship Specialty Start Date End Date Martin Mcneill MD [address] [place], [place] [id number] PCP - General Family Medicine 11/02/15 (unrecognized sect ion and content) No Status Records Found INFORMATION SOURCE (unrecogn ized section and content) FOR RECORDS PERTAINING TO PATIENTS WHO ARE OR HAVE BEEN ENROLLED IN A CHEMICAL DEPENDENCY/SUBSTANCEABUSE PROGRAM, SOME INFORMATION MAY BE OMITTED. This clinical summary was aggregated from multiple sources. Caution should be exercised in using it in the provision of clinical care. This summary normalizes information from multiple sources, and as a consequence, information in this document may materially change the coding, format and clinical context of patient data. In addition, data may be omitted in some cases. CLINICAL DECISIONS SHOULD BE BASED ON THE PRIMARY CLINICAL RECORDS. [employer] provides no warranty or guarantee of the accuracy or completeness of information in this document.
[2023-11-12 22:16] VITALS: BP 162/102; PULSE 88; RESP 14; O2SAT 98
== END 2023-11-12 22:18 | disposition home or self-care (01) ==
PROVIDERS: Physician Assistant; Emergency Provider Emergency Medicine; PCP Family Medicine; Visit Provider Emergency Medicine
DX: R55 Syncope and collapse (principal); F17.210 Nicotine dependence, cigarettes, uncomplicated; I25.2 Old myocardial infarction; Z95.5 Presence of coronary angioplasty implant and graft
CPT/HCPCS: 71045; 80048; 84484; 85025; 87631; 93005; 99285; J7030; A4216